=== PATIENT | female | born 1940 | race Caucasian/White ===

== ENCOUNTER 2017-02-09 10:29 | Day surgery (SDC) | payer MEDICARE ==
[~2017-02-09 10:29] MED LIST: LACTATED RINGERS 1,000 ML IV SCH; LIDOCAINE 1% 20 ML VIAL (10MG/ML) FOR IV START INTRADERMA PRN
[2017-02-09 11:50] VITALS: RESP 16; TEMP 97.4
[2017-02-09] MEDS ORDERED: PROPOFOL 10 MG/ML 20 ML VIAL IV ONE (12:22)
--- NOTE | 2017-02-09 12:44 | P.PCN ---
Date of Procedure: 02/09/17 Preoperative Diagnosis: Postoperative Diagnosis: Procedure(s) Performed: BRIEF HISTORY: Patient is a 76-year-old pleasant white female, scheduled for an elective colonoscopy as a part of evaluation of prior history of colon polyps. PROCEDURE PERFORMED: Colonoscopy with biopsy PREOPERATIVE DIAGNOSIS: History of colon polyps. IV sedation per Anesthesia. PROCEDURE: After informed consent was obtained, the patient, was brought into the endoscopy unit. IV sedation was administered by Anesthesia under continuous monitoring. Digital rectal examination was normal. Initially the Olympus CF- 160 flexible video colonoscope was then inserted in the rectum, gradually advanced into the cecum without any difficulty. Careful examination was performed as the scope was gradually being withdrawn. Ileocecal valve and the appendiceal orifice were visualized and appeared normal. Prep was excellent. There was a 5 mm polyp noted in the cecum that was removed by biopsy. Mucosa of the cecum, ascending colon, transverse colon, descending colon, sigmoid colon , and rectum appeared normal. Retroflexion was performed in the rectum and no lesions were seen. The patient tolerated the procedure well. IMPRESSION: 5 mm polyp status post removal by biopsy Mild melanosis coli. RECOMMENDATIONS: Findings of this examination were discussed with the patient as well as a family. She was advised to follow with the biopsy results. If the biopsy shows a tubular adenoma she can have a repeat colonoscopy in 5 years. Implants: Indications for Procedure: Operative Findings: Description of Procedure:
[2017-02-09 13:10] VITALS: BP 104/58; PULSE 47
== END 2017-02-09 13:57 | disposition home or self-care (01) ==
LOC: ORWHC2ENDO 10:29
PROVIDERS: ATTEND Internal Medicine Gastroenterology
DX: Z12.11 Encounter for screening for malignant neoplasm of colon (principal); D12.0 Benign neoplasm of cecum; K63.89 Other specified diseases of intestine; Z86.010 Personal history of colon polyps; I49.9 Cardiac arrhythmia, unspecified; I10 Essential (primary) hypertension; E78.5 Hyperlipidemia, unspecified; I48.91 Unspecified atrial fibrillation; M06.9 Rheumatoid arthritis, unspecified; E07.9 Disorder of thyroid, unspecified; Z79.899 Other long term (current) drug therapy
CPT/HCPCS: 88305; 45380; J2704

== ENCOUNTER → 2018-05-24 | Outpatient (CLI) | payer MEDICARE ==
--- NOTE | 2018-05-27 10:58 | MM ---
Reason for exam: screening (asymptomatic). Last mammogram was performed 1 year and 6 months ago. History: Patient is postmenopausal. Family history of breast cancer in maternal cousin. Took hormonal contraceptives for 10 years. Took estrogen for 25 years. Took progesterone for 25 years. Physical Findings: A clinical breast exam by your physician is recommended on an annual basis and results should be correlated with mammographic findings. MG 3D Screening Mammo W/Cad Bilateral CC and MLO view(s) were taken. Prior study comparison: December 05, 2016, mammogram, performed at [facility]. March 30, 2015, bilateral MG screening mammo w CAD. March 27, 2014, bilateral MG screening mammo w CAD. The breast tissue is heterogeneously dense. This may lower the sensitivity of mammography. No suspicious abnormality. No significant changes when compared with prior studies. ASSESSMENT: Negative, BI-RAD 1 RECOMMENDATION: Routine screening mammogram of both breasts in 1 year.
== END | disposition home or self-care (01) ==
LOC: RADMAMWWP 10:44
PROVIDERS: ATTEND Internal Medicine Geriatric Medicine
DX: Z12.31 Encounter for screening mammogram for malignant neoplasm of breast (principal)
CPT/HCPCS: 77063; 77067

== ENCOUNTER → 2019-02-03 | Outpatient (CLI) | payer MEDICARE ==
--- NOTE | 2019-02-03 17:17 | BD ---
EXAMINATION TYPE: Axial Bone Density DATE OF EXAM: 02/03/2019 COMPARISON: 2013 CLINICAL HISTORY: 78-year-old female osteoporosis Height: 5'7 Weight: 155 FRAX RISK QUESTIONS: Secondary Osteoporosis: 3. Menopause before 45: y RISK FACTORS HISTORY OF: Surgery to Spine: L sp When: age 30's Postmenopausal woman: y Lost more than 2 inches in height since high school: y MEDICATIONS: Thyroid Medications: Which medication: Levothyroxine How Lon years Additional Medications: pain, high blood pressure , heart Additional History: EXAM MEASUREMENTS: Bone mineral densitometry was performed using the [employer]. Bone mineral density about the R hip (g/cm2): 0.760 Bone mineral density about the L hip (g/cm2):0.769 T Score values are as follows: -----R Neck: -2.0 -----L Neck: -1.9 -----R Total: -2.2 -----L Total: -2.1 Bone mineral density has: Decreased -5.1% since study of: Bone mineral density about the L Wrist (g/cm2): 0.518 T Score values are as follows: -----Dist. R+U: -2.7 -----Prox. R+U: -2.6 -----Radius total: -2.6 IMPRESSION: Osteoporosis (T Score less than -2.5). There is increased fracture risk and therapy is usually indicated based on age. Re-Screen 1-2 years. NOTE: T-SCORE=SD OF THE YOUNG ADULT MEAN.
== END | disposition home or self-care (01) ==
LOC: RADBDWWP 13:24
PROVIDERS: ATTEND Internal Medicine Geriatric Medicine
DX: M81.0 Age-related osteoporosis without current pathological fracture (principal)
CPT/HCPCS: 77080

== ENCOUNTER 2019-06-28 19:42 | Inpatient (IN) | payer MEDICARE ==
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
[2019-06-28 20:29] LABS: Basophils % (A) 1 %; Eosinophils # (A) 0.1 k/uL (0-0.7); Eosinophils % (A) 2 %; HCT 46.5 % (34.0-46.0); HGB 15.2 gm/dL (11.4-16.0); Lymphocytes # (A) 1.8 k/uL (1.0-4.8); Lymphocytes % (A) 33 %; MCH 31.4 pg (25.0-35.0); MCHC 32.7 g/dL (31.0-37.0); MCV 96.3 fL (80.0-100.0); Mean Platelet Volume 7.5; Monocytes # (A) 0.3 k/uL (0-1.0); Monocytes % (A) 6 %; Neutrophils # (A) 3.2 k/uL (1.3-7.7); Neutrophils % (A) 57 %; Platelet Count 165 k/uL (150-450); RBC 4.83 m/uL (3.80-5.40); RDW 13.3 % (11.5-15.5); WBC 5.6 k/uL (3.8-10.6)
[2019-06-28 20:37] LABS: Partial Thromboplastin Time 25.1 sec (22.0-30.0); Prothrombin Time 10.4 sec (9.0-12.0)
--- NOTE | 2019-06-28 20:37 | XR ---
EXAMINATION TYPE: XR chest 1V portable DATE OF EXAM: 06/28/2019 COMPARISON: NONE HISTORY: Short of breath TECHNIQUE: Single frontal view of the chest is obtained. FINDINGS: Heart is enlarged. There is no heart failure. There is a oval-shaped 2.8 x 2 cm mass over the right midlung. There are chest leads. Costophrenic angles are clear. Bony thorax appears intact. IMPRESSION: Right-sided pulmonary mass is relatively dense. Recommend comparison with old exams. Car diomegaly. No heart failure.
[2019-06-28 20:38] LABS: Albumin 4.1 g/dL (3.5-5.0); Calcium 9.8 mg/dL (8.4-10.2); Magnesium 2.1 mg/dL (1.6-2.3); Potassium 4.1 mmol/L (3.5-5.1); Total Bilirubin 0.5 mg/dL (0.2-1.3); Total Protein 6.5 g/dL (6.3-8.2)
[2019-06-28] MEDS ORDERED: CEFEPIME 2 GM in SODIUM CHLORIDE 0.9% 100 ML IVPB STA (20:50)
[2019-06-28] MEDS ORDERED: SODIUM BICARB 8.4% 50 ML SYR (1 MEQ/ML) IV STA (20:52)
[2019-06-28] MEDS ORDERED: NALOXONE 0.4 MG/ML 1 ML VIAL IV PRN ×2 (20:57→20:59)
[2019-06-28] MEDS ORDERED: MORPHINE SULFATE 4 MG/ML SYRINGE IV PRN (20:57)
[2019-06-28] MEDS ORDERED: ONDANSETRON 4 MG/2 ML VIAL IVP PRN (20:57)
[2019-06-28] MEDS ORDERED: ATORVASTATIN 10 MG TAB PO SCH (21:00)
[2019-06-28] MEDS ORDERED: LOSARTAN 50 MG TAB PO PRN (21:00)
[2019-06-28] MEDS ORDERED: SODIUM CHLORIDE 0.9% 1,000 ML IV SCH (21:00)
[2019-06-28] MEDS: SODIUM CHLORIDE 0.9% 1,000 ML IV SCH (21:08)
[2019-06-29] MEDS ORDERED: [UNRECOGNIZED DRUG - OTHER] PO SCH (09:00)
[2019-06-29] MEDS ORDERED: NON FORMULARY DRUG (Cranberry 4200mg 4,200 MG) PO SCH (09:00)
[2019-06-29] MEDS: MULTIVITAMINS, THERA 1 EACH TAB PO SCH (09:07)
[2019-06-29] MEDS: ATORVASTATIN 20 MG TAB PO SCH ×2 (09:07→09:15)
[2019-06-29] MEDS: CHOLECALCIFEROL 1,000 UNIT TAB PO SCH (09:07)
[2019-06-29] MEDS: APIXABAN 5 MG TAB PO SCH ×2 (09:07→20:01)
[2019-06-29] MEDS: LEVOTHYROXINE 75 MCG TAB PO SCH (09:24)
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
[2019-06-29] MEDS: LOSARTAN 50 MG TAB PO SCH (12:02)
[2019-06-29] MEDS: ATENOLOL 25 MG TAB PO SCH (12:02)
--- NOTE | 2019-06-29 12:42 | CONS ---
CONSULTATION CHIEF COMPLAINT: Cardiac arrhythmia. Paty is a 78-year-old lady with history of paroxysmal atrial fibrillation, dyslipidemia, hypothyroidism, and hypertension who is admitted to the hospital following an abnormal event monitor. The patient has had 2 episodes of sustained palpitations and dizziness and was undergoing an event monitor through her lead programmer analyst from [facility]. Yesterday, she had another episode of dizziness, saw her lead programmer analyst who apparently told that her event monitor was abnormal and sent her to the emergency room from where she was admitted. I do not have rhythm strips from the from this event monitor. She apparently had an episode of ventricular tachycardia. There is no history of syncope and no history of chest pain, difficulty in breathing or focal neurological deficits. EKG shows sinus rhythm with nonspecific ST-T wave changes. One troponin is negative. Creatinine is 1.2. Hemoglobin is 15.2, potassium is 4.1, and the patient's Rythmol is currently on hold. The patient has not had a recent stress test and echocardiogram. PAST MEDICAL HISTORY: Significant for paroxysmal atrial fibrillation, hypertension, dyslipidemia, hypothyroidism. MEDICATIONS: Include Eliquis 5 b.i.d., Tenormin 25 daily, Lipitor 20 daily, Synthroid, Cozaar, Narcan. ALLERGIES: THE PATIENT IS ALLERGIC TO ADHESIVE AND LATEX. FAMILY HISTORY: Negative for premature coronary artery disease. SOCIAL HISTORY: Negative for current smoking, ETOH abuse or drug abuse. REVIEW OF SYSTEMS: HEENT is unremarkable. CARDIAC: As described above. RESPIRATORY: Negative. GI negative. Genitourinary: Neg. Allergy/Immunology: Negative. Skin negative. Musculoskeletal negative. Endocrine: Negative. Constitutional: Negative. Oncologic negative. Rest of the systems reviewed, not relevant. EXAM: The patient is comfortable at rest. VITAL SIGNS: Stable. There is no jugular venous distention. Carotid upstroke is normal. There is no bruit. Chest exam revealed good air entry bilaterally. Heart exam reveals first and second heart sounds. No gallop. No murmur. ABDOMEN: Soft. Exam of extremities did not reveal any edema palpable. Peripheral pulses are felt. ASSESSMENT: 1. Palpitations. 2. Possible ventricular tachycardia. 3. Paroxysmal atrial fibrillation. PLAN: I am going to obtain troponins to rule out myocardial infarction. Check a magnesium. I asked the nurse to get a hold of her outpatient records including event monitor results. I will obtain a 2D echo on her to evaluate LV function. Further course of action based on these test results. MMJANNY / EDWARDN: [id number] /
[2019-06-29 12:52] LABS: Magnesium 2.2 mg/dL (1.6-2.3)
[2019-06-29] MEDS: SODIUM CHLORIDE 0.9% 1,000 ML IV SCH (20:01)
[2019-06-30] MEDS: ATENOLOL 25 MG TAB PO SCH ×2 (07:41→08:59)
[2019-06-30] MEDS: APIXABAN 5 MG TAB PO SCH (07:41)
[2019-06-30] MEDS: LEVOTHYROXINE 75 MCG TAB PO SCH (07:42)
[2019-06-30] MEDS: CHOLECALCIFEROL 1,000 UNIT TAB PO SCH (07:42)
[2019-06-30] MEDS: ATORVASTATIN 20 MG TAB PO SCH (07:42)
[2019-06-30] MEDS: LOSARTAN 50 MG TAB PO SCH (07:42)
[2019-06-30] MEDS: MULTIVITAMINS, THERA 1 EACH TAB PO SCH (07:42)
[2019-06-30 08:07] VITALS: RESP 18
[2019-06-30] MEDS ORDERED: CAFFEINE CITRATE 60 MG/3 ML VIAL IV PRN (10:37)
[2019-06-30] MEDS ORDERED: AMINOPHYLLINE 500 MG/20 ML VIAL IV PRN (10:37)
[2019-06-30] MEDS ORDERED: SODIUM CHLORIDE 0.9% IV ONE (11:00)
[2019-06-30] MEDS ORDERED: DIPYRIDAMOLE IV ONE (11:00)
[2019-06-30 11:34] VITALS: BP 107/62; PULSE 50; TEMP 98.1
--- NOTE | 2019-06-30 11:36 | ECHOF ---
Referral Reason:dysrythmia MEASUREMENTS -------- HEIGHT: 170.2 cm WEIGHT: 69.9 kg BP: 116/66 IVSd: 1.2 cm (0.6 - 1.1) LVIDd: 3.9 cm (3.9 - 5.3) LVPWd: 1.2 cm (0.6 - 1.1) IVSs: 1.7 cm LVIDs: 2.8 cm LVPWs: 1.8 cm RVIDd: 3.7 cm (< 3.3) LAESV Index (A-L): 27.08 ml/m Ao Diam: 3.0 cm (2.0 - 3.7) LA Diam: 4.0 cm (2.7 - 3.8) AV Cusp: 2.0 cm (1.5 - 2.6) EPSS: 0.6 cm MV E Tyree: 0.63 m/s MV DecT: 193 ms MV A Tyree: 0.41 m/s MV E/A Ratio: 1.56 RAP: 5.00 mmHg RVSP: 33.99 mmHg MV EF SLOPE: 96.41 mm/s (70 - 150) MV EXCURSION: 14.88 mm (> 18.000) FINDINGS -------- Resting bradycardia (HR<60bpm). This was a technically adequate study. The left ventricular size is normal. There is mild concentric left ventricular hypertrophy. Overa ll left ventricular systolic function is low-normal with, an EF between 50 - 55 %. The diastolic fi lling pattern is normal for the age of the patient 11.65. The right ventricle is mildly enlarged. Normal LA size by volume 22+/-6 ml/m2. The right atrium is mildly enlarged. Interatrial and interventricular septum intact. The aortic valve is trileaflet and appears structurally normal. There is no evidence of aortic regu rgitation. There is no evidence of aortic stenosis. Mild mitral regurgitation is present. Mild tricuspid regurgitation present. There is no evidence of pulmonary hypertension. The right v entricular systolic pressure, as measured by Doppler, is 33.99mmHg. There is no pulmonic regurgitation present. The aortic root size is normal. The inferior vena cava is mildly dilated. There is no pericardial effusion. CONCLUSIONS -------- 1. Resting bradycardia (HR<60bpm). 2. This was a technically adequate study. 3. The left ventricular size is normal. 4. There is mild concentric left ventricular hypertrophy. 5. Overall left ventricular systolic function is low-normal with, an EF between 50 - 55 %. 6. The diastolic filling pattern is normal for the age of the patient 11.65 7. The right ventricle is mildly enlarged. 8. Normal LA size by volume 22+/-6 ml/m2. 9. The right atrium is mildly enlarged. 10. Interatrial and interventricular septum intact. 11. The aortic valve is trileaflet and appears structurally normal. 12. There is no evidence of aortic regurgitation. 13. There is no evidence of aortic stenosis. 14. Mild mitral regurgitation is present. 15. Mild tricuspid regurgitation present. 16. There is no evidence of pulmonary hypertension. 17. The right ventricular systolic pressure, as measured by Doppler, is 33.99mmHg. 18. There is no pulmonic regurgitation present. 19. The aortic root size is normal. 20. The inferior vena cava is mildly dilated. 21. There is no pericardial effusion. COMMERCIAL INTERN: Varsha Reveles RDCS
[2019-06-30] MEDS ORDERED: DOBUTamine DRIP for NUC MED 500 MG in DEXTROSE/WATER 1 250ML.BAG IV ONE (11:45)
--- NOTE | 2019-06-30 11:52 | P.PN ---
Subjective This is a pleasant 78-year-old female past medical history significant for paroxysmal atrial fibrillation on fci anticoagulation with Eliquis, hypertension, dyslidiemia who follows with Dr. Machado out of [place]. We are following her for arrhythmia noted on an outpatient monitor. Monitor tracings were received this morning and reviewed by Dr. Ruvalcaba. The strips indicate she was having wide complex atrial tachycardia with aberrancy, not ventricular tachycardia. Rhythmol has been discontinued, last dose was Thursday 06/28 at 18 30. Currently maintained on atenolol 25 mg daily, losartan 50 mg daily, eliquis 5 mg BID and atorvastatin 20 mg daily. Blood pressure 107/62 heart rate 50 afebrile and maintaining oxygen saturation on room air. Echocardiogram reveals preserved LV systolic function with ejection fraction 50-55%, abnormal diastolic filling pattern, mild MR and mild TR. She underwent stress echocardiogram in the office with her repair miller 01/2018 that was negative for stress induced ischemia. She has had no further symptoms of dizziness. She denies chest pain, shortness of breath or palpitations. GENERAL: Well-appearing, well-nourished and in no acute distress. NECK: Supple without JVD or thyromegaly. LUNGS: Breath sounds clear to auscultation bilaterally. Respiration equal and unlabored. No wheezes, rales or rhonchi. HEART: Regular rate and rhythm without murmurs, rubs or gallops. S1 and S2 heard. EXTREMITIES: Normal range of motion, no edema. No clubbing or cyanosis. Peripheral pulses intact. ASSESSMENT Wide complex regular atrial tachycardia with aberrancy Paroxysmal atrial fibrillation on long term care pharmacist anti-coagulation Hypertension Dyslipidemia PLAN Recommend proceeding with stress testing to assess for stress induced ischemia. If stress testing is normal she will need an EP study. If abnormal she will require cardiac catheterization to assess for underlying coronary artery disease. An appointment has been made with her repair miller for tomorrow if the stress test is normal. Continue to hold rhythmol on discharge. Atenolol held this morning for bradycardia, will require an increased dose at discharge if she tolerates. Nurse Practitioner note has been reviewed, I agree with a documented findings and plan of care. Patient was seen and examined. Objective - Vital Signs Vital signs: Vital Signs Temp 98.1 F 06/30/19 11:32 Pulse 50 L 06/30/19 11:32 Resp 18 06/30/19 11:32 BP 107/62 06/30/19 11:32 Pulse Ox 97 06/30/19 11:32 Intake & Output 06/29/19 06/30/19 06/30/19 18:59 06:59 18:59 Intake Total 480 Balance 480 Intake: Oral 480 Other: Voiding Method Toilet Toilet Toilet # Voids 1 2 - Labs CBC & Chem 7: 06/28/19 19:58 06/28/19 19:58
[2019-06-30] MEDS ORDERED: ATROPINE SULFATE 0.1 MG/ML 10ML SYRINGE ONE (12:30)
--- NOTE | 2019-06-30 13:59 | P.DS ---
Providers Date of admission: 06/28/19 21:03 Expected date of discharge: 06/30/19 Attending physician: Ysabel Fernandez Consults: 06/28/19 21:20 Consult Physician Routine Consulting Provider: Tom Bingham Consult Reason/Comments: propafenone toxic? Do you want consulting provider notified?: Yes Primary care physician: [facility] Course: This is a 78- Year old female one of with a previous medical history significant for hypertension and hypertensive cardiovascular disease, hyperlipidemia and atrial fibrillation has been following with Cardiology outside [place] and has been wearing a DCG were she received a call from her Crdiologist to go the ER due to the fact she had arrhythmia due to her Propafenone and she needs to stop it, patient was ready to go to [facility] when she developed an episode were she felt extremely weak and lightheaded lasted for 2 minutes and resolved on its own, then she went to [facility] and came back , her Casino Cashier called her and asked to go to the Hospital. Patient was given 2 amps of Sodium Bicarb in the Emergency and she was taken off her Propafenone and was admitted for cardiac evaluation. 06/30: Patient has been seen by cardiology and event monitor results to be obtained, troponin magnesium and echocardiogram. TSH 2.260, magnesium 2.2. Heart rate is running in the 40s to 50s, blood pressure 110/67, pulse ox 97% on room air, afebrile. Echocardiogram reveals EF of 50-55% with mild concentric left ventricular hypertrophy, mild mitral regurgitation, mild tricuspid regurgitation, no pulmonary hypertension. Cardiology requested dobutamine stress echo which was abnormal with ST depression at least 2 mm without any chest discomfort. No arrhythmias. No echo cardiographic evidence of ischemia. Patient was cleared for discharge by cardiology and patient was discharged home in stable condition. Note that did review the strip scented. The patient had a regular tachycardia likely aberrancy associated with dizziness. Discharge diagnoses: 1. Episodes of sinus tachycardia with aberrancy. 2. Hypertension and hypertensive cardiovascular disease. 3. Hyperlipidemia. 4. Hypothyroidism. 5. Paroxysmal Atrial Fibrillation. 6.Vitamin D deficiency. Discharge plan: Home Impression and plan of care have been directed as dictated by the signing physician. Tiffanie Anne nurse practitioner acting as scribe for signing physician. Patient Condition at Discharge: Good Plan - Discharge Summary New Discharge Prescriptions: Continue Cholecalciferol [Vitamin D3 (25 Mcg = 1000 Iu)] 4,000 unit PO DAILY Multivitamins, Thera [Multivitamin (formulary)] 1 tab PO DAILY Levothyroxine Sodium [Synthroid] 75 mcg PO DAILY Losartan [Cozaar] 50 mg PO DAILY Atorvastatin [Lipitor] 20 mg PO DAILY Theracumin 600mg 600 mg PO DAILY Cranberry 4200mg 4,200 mg PO DAILY Apixaban [Eliquis] 5 mg PO BID Changed Atenolol 12.5 mg PO DAILY PRN #0 PRN Reason: HIGH HEART RATE Discontinued Propafenone HCl [Propafenone HCl ER] 225 mg PO TID Simvastatin [Zocor] 20 mg PO DAILY Discharge Medication List Cholecalciferol [Vitamin D3 (25 Mcg = 1000 Iu)] 4,000 unit PO DAILY 02/07/17 [History] Levothyroxine Sodium [Synthroid] 75 mcg PO DAILY 02/07/17 [History] Multivitamins, Thera [Multivitamin (formulary)] 1 tab PO DAILY 02/07/17 [History] Apixaban [Eliquis] 5 mg PO BID 06/28/19 [History] Atorvastatin [Lipitor] 20 mg PO DAILY 06/28/19 [History] Cranberry 4200mg 4,200 mg PO DAILY 06/28/19 [History] Losartan [Cozaar] 50 mg PO DAILY 06/28/19 [History] Theracumin 600mg 600 mg PO DAILY 06/28/19 [History] Atenolol 12.5 mg PO DAILY PRN #0 06/30/19 [Rx] Follow up Appointment(s)/Referral(s): Yuri Jeong MD [Primary Care Provider] - 1 Week Patient Instructions/Handouts: Chest Pain (DC) Activity/Diet/Wound Care/Special Instructions: Follow-up with primary wheel buffer as scheduled for tomorrow 07/01/19 at 3:15pm Discharge Disposition: HOME SELF-CARE
--- NOTE | 2019-06-30 14:54 | P.STRESS ---
- Stress Test Note Stress Test Results/Findings: Exam Performed: dobutamine stress echo Exam Date: 06/30/19 Reason for Exam: A-FIB / VERTIGO / SOB Height: 5 ft 7 in Weight: 69.853 kg Protocol: DSE Stage: 5 Duration of Exercise: 13:00 Resting Heart Rate: 43 Resting Blood Pressure: 104/77 Maximum Achieved Heart Rate: 131 Maximum Achieved Blood Pressure: 175/81 85% PMHR: 121 100% PMHR: 142 METS: NA Technologist Comment: Stress Test Results/Findings: Indication History of atrial fibrillation on Afternoon now presenting with a wide complex tachycardia with a very short on S duration consistent with aberrancy I reviewed all his strips and it appears to be regular tachycardia likely aberrancy Associated with dizziness no syncope Twelve-lead ECG after stopping propafenone showed sinus rhythm normal [place] narrow QRS normal ST segments Patient received dobutamine infusion per protocol up to 40 mics. There was no tachycardia induced. Occasional PVCs and ventricular couplets were induced occasional PACs were induced Abnormal ECG response with ST depression inferolaterally was noted . [address] depression was noted this is followed by T-wave inversions How the baseline 2-D echo images showed normal LV systolic function without segmental wall motion abnormalities With dobutamine there was a stepwise increment in overall LV contractility No clear-cut wall motion abnormalities were noted At recovery reasonably systolic function with normal Impression Abnormal ECG response to dobutamine with ST depression of at least 2 mm without any chest discomfort No arrhythmias induced No echocardiographic evidence for ischemia
== END 2019-06-30 17:02 | disposition home or self-care (01) | DRG 310 ==
LOC: EC 19:42 → 1SOBS 21:02 → OBSVTOIN 21:03
PROVIDERS: ADMIT Internal Medicine; ATTEND Internal Medicine
DX: I47.1 Supraventricular tachycardia (principal); T46.2X5A Adverse effect of other antidysrhythmic drugs, initial encounter; E03.9 Hypothyroidism, unspecified; E55.9 Vitamin D deficiency, unspecified; E78.5 Hyperlipidemia, unspecified; I11.9 Hypertensive heart disease without heart failure; I48.0 Paroxysmal atrial fibrillation; M06.9 Rheumatoid arthritis, unspecified; Z79.01 Long term (current) use of anticoagulants; Z79.02 Long term (current) use of antithrombotics/antiplatelets; Z79.890 Hormone replacement therapy; Z79.899 Other long term (current) drug therapy; Z86.010 Personal history of colon polyps; Z87.891 Personal history of nicotine dependence; I08.1 Rheumatic disorders of both mitral and tricuspid valves; Z91.040 Latex allergy status; G89.29 Other chronic pain; M54.2 Cervicalgia; M54.9 Dorsalgia, unspecified; Z79.82 Long term (current) use of aspirin; J98.4 Other disorders of lung
CPT/HCPCS: 36415; 71045; 80053; 83735; 84443; 84484; 85025; 85610; 85730; 93005; 93306; 93351; 94760; 96374; 99285

== ENCOUNTER 2020-06-12 16:50 | Emergency (ER) | payer MEDICARE ==
[2020-06-12 17:22] VITALS: RESP 20
[2020-06-12 17:32] LABS: Basophils % (A) 1 %; Eosinophils # (A) 0.1 k/uL (0-0.7); Eosinophils % (A) 1 %; HCT 50.2 % (34.0-46.0); HGB 16.2 gm/dL (11.4-16.0); Lymphocytes # (A) 1.1 k/uL (1.0-4.8); Lymphocytes % (A) 16 %; MCH 32.2 pg (25.0-35.0); MCHC 32.2 g/dL (31.0-37.0); MCV 99.9 fL (80.0-100.0); Monocytes # (A) 0.4 k/uL (0-1.0); Monocytes % (A) 6 %; Neutrophils # (A) 5.2 k/uL (1.3-7.7); Neutrophils % (A) 77 %; Platelet Count 184 k/uL (150-450); RBC 5.02 m/uL (3.80-5.40); RDW 13.5 % (11.5-15.5); WBC 6.8 k/uL (3.8-10.6)
[2020-06-12 17:42] LABS: Albumin 4.2 g/dL (3.5-5.0); Calcium 9.4 mg/dL (8.4-10.2); Magnesium 2.2 mg/dL (1.6-2.3); Prothrombin Time 10.6 sec (9.0-12.0); Total Bilirubin 1.8 mg/dL (0.2-1.3); Total Protein 6.9 g/dL (6.3-8.2)
--- NOTE | 2020-06-12 17:43 | XR ---
EXAMINATION TYPE: XR chest 2V DATE OF EXAM: 06/12/2020 COMPARISON: 06/28/2019 HISTORY: Difficulty breathing TECHNIQUE: FINDINGS: There is no heart failure nor confluent pneumonic infiltrate. There is 2.4 cm rounded sharp ly marginated nodule in the right lower lobe unchanged. There are no hilar masses. There are chest le ads. Bony thorax is intact. IMPRESSION: Right lower lobe mass unchanged. No acute lung disease. Mild cardiomegaly.
[2020-06-12 17:46] LABS: Potassium 4.9 mmol/L (3.5-5.1)
--- NOTE | 2020-06-12 17:54 | ED ---
General Adult HPI - General Stated complaint: sob Time Seen by Provider: 06/12/20 16:59 Source: patient, RN notes reviewed, old records reviewed Mode of arrival: ambulatory Limitations: no limitations - History of Present Illness Initial comments: 79 yo female with an episode of dyspnea just prior to arrival. Patient has history of atrial fibrillation. She had been instructed by her manager domestic to take a dose of atenolol if her heart was racing. She did not feel palpitations or racing heart rate had some dyspnea and felt this was associated with her heart so she tooka dose of her medication. She denied chest pain. She states that she was a little bit worked up after playing an online [employer] game. She denies vomiting. Denies diaphoresis. Denies fever. She feels totally better after arrival with no complaints. She wants to go home - Related Data Home Medications Medication Instructions Recorded Confirmed Cholecalciferol [Vitamin D3 (25 4,000 unit PO DAILY 02/07/17 06/28/19 Mcg = 1000 Iu)] Levothyroxine Sodium [Synthroid] 75 mcg PO DAILY 02/07/17 06/28/19 Multivitamins, Thera [Multivitamin 1 tab PO DAILY 02/07/17 06/28/19 (formulary)] Apixaban [Eliquis] 5 mg PO BID 06/28/19 06/28/19 Atorvastatin [Lipitor] 20 mg PO DAILY 06/28/19 06/28/19 Cranberry 4200mg 4,200 mg PO DAILY 06/28/19 06/28/19 Losartan [Cozaar] 50 mg PO DAILY 06/28/19 06/28/19 Theracumin 600mg 600 mg PO DAILY 06/28/19 06/28/19 Previous Rx's Medication Instructions Recorded atenoloL [Atenolol] 12.5 mg PO DAILY PRN #0 06/30/19 Allergies Allergy/AdvReac Type Severity Reaction Status Date / Time adhesive Allergy Rash/Hives Verified 06/12/20 17:22 latex Allergy Rash/Hives Verified 06/12/20 17:22 Review of Systems ROS Statement: Those systems with pertinent positive or pertinent negative responses have been documented in the HPI. ROS Other: All systems not noted in ROS Statement are negative. Past Medical History Past Medical History: Atrial Fibrillation, Hyperlipidemia, Hypertension, Osteoarthritis (OA), Thyroid Disorder Additional Past Medical History / Comment(s): CHRONIC NECK AND BACK PAIN. COLON POLYPS. LEAKY HEART VALVE. 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 ddd History of Any Multi-Drug Resistant Organisms: None Reported Past Surgical History: Back Surgery Past Anesthesia/Blood Transfusion Reactions: Previous Problems w/ Anesthesia Additional Past Anesthesia/Blood Transfusion Reaction / Comment(s): WOKE UP DURING SURGERY (COULDN'T MOVE, SPEAK, BUT REMEMBER THEM SAWING ON BONE). Past Psychological History: No Psychological Hx Reported Smoking Status: Never smoker Past Alcohol Use History: None Reported Past Drug Use History: None Reported - Past Family History Mother History Unknown: Yes General Exam Limitations: no limitations General appearance: alert, in no apparent distress Head exam: Present: atraumatic, normocephalic Eye exam: Present: normal appearance, PERRL ENT exam: Present: normal exam Neck exam: Present: normal inspection. Absent: tenderness, meningismus Respiratory exam: Present: normal lung sounds bilaterally. Absent: respiratory distress, wheezes Cardiovascular Exam: Present: regular rate, normal rhythm GI/Abdominal exam: Present: soft. Absent: distended, tenderness Extremities exam: Present: normal inspection, normal capillary refill. Absent: pedal edema, calf tenderness Neurological exam: Present: alert, oriented X3, CN II-XII intact. Absent: motor sensory deficit Psychiatric exam: Present: normal affect, normal mood Skin exam: Present: warm, dry, intact. Absent: cyanosis, diaphoretic Course Vital Signs 06/12/20 06/12/20 16:55 17:10 Temperature 97.8 F Pulse Rate 58 L Respiratory 20 20 Rate Blood Pressure 157/105 O2 Sat by Pulse 99 Oximetry EKG Findings - EKG Comments: EKG Findings:: EKG: Sinus bradycardia, rate of 57, GA interval 174, QRS duration 82, QTC 492, no ST segment elevation. Medical Decision Making - Medical Decision Making 79-year-old female with an episode of dyspnea, resolved. She is anticoagulated with history of atrial fibrillation. She is in sinus rhythm. Her symptoms are completely resolved she is very eager for a short ER visit and rapid discharge. Her laboratory testing revealsnormal CBC, normal x-rays, negative troponin. She has mildly elevated bilirubin and AST with no vomiting, no abdominal pain, no tenderness. She will monitor for these symptoms. Her chest x-ray shows a round mass right lower lobe, unchanged from prior. Patient states she had valley fever approximately 10 years ago and this is known to her. She will follow with her primary care physician. She will return with any changingsymptoms or the development of new symptoms. - Lab Data Result diagrams: 06/12/20 17:14 06/12/20 17:14 Lab Results 06/12/20 06/12/20 06/12/20 Range/Units 17:14 17:14 17:14 WBC 6.8 (3.8-10.6) k/uL RBC 5.02 (3.80-5.40) m/uL Hgb 16.2 H (11.4-16.0) gm/dL Hct 50.2 H (34.0-46.0) % MCV 99.9 (80.0-100.0) fL MCH 32.2 (25.0-35.0) pg MCHC 32.2 (31.0-37.0) g/dL RDW 13.5 (11.5-15.5) % Plt Count 184 (150-450) k/uL Neutrophils % 77 % Lymphocytes % 16 % Monocytes % 6 % Eosinophils % 1 % Basophils % 1 % Neutrophils # 5.2 (1.3-7.7) k/uL Lymphocytes # 1.1 (1.0-4.8) k/uL Monocytes # 0.4 (0-1.0) k/uL Eosinophils # 0.1 (0-0.7) k/uL Basophils # 0.0 (0-0.2) k/uL PT 10.6 (9.0-12.0) sec INR 1.0 (<1.2) APTT 24.0 (22.0-30.0) sec Sodium 138 (137-145) mmol/L Potassium 4.9 (3.5-5.1) mmol/L Chloride 107 (98-107) mmol/L Carbon Dioxide 26 (22-30) mmol/L Anion Gap 5 mmol/L BUN 16 (7-17) mg/dL Creatinine 0.96 (0.52-1.04) mg/dL Est GFR (CKD-EPI)AfAm 65 (>60 ml/min/1.73 sqM) Est GFR (CKD-EPI)NonAf 57 (>60 ml/min/1.73 sqM) Glucose 108 H (74-99) mg/dL Calcium 9.4 (8.4-10.2) mg/dL Magnesium 2.2 (1.6-2.3) mg/dL Total Bilirubin 1.8 H (0.2-1.3) mg/dL AST 57 H (14-36) U/L ALT 21 (4-34) U/L Alkaline Phosphatase 69 (38-126) U/L Troponin I (0.000-0.034) ng/mL Total Protein 6.9 (6.3-8.2) g/dL Albumin 4.2 (3.5-5.0) g/dL 06/12/20 Range/Units 17:14 WBC (3.8-10.6) k/uL RBC (3.80-5.40) m/uL Hgb (11.4-16.0) gm/dL Hct (34.0-46.0) % MCV (80.0-100.0) fL MCH (25.0-35.0) pg MCHC (31.0-37.0) g/dL RDW (11.5-15.5) % Plt Count (150-450) k/uL Neutrophils % % Lymphocytes % % Monocytes % % Eosinophils % % Basophils % % Neutrophils # (1.3-7.7) k/uL Lymphocytes # (1.0-4.8) k/uL Monocytes # (0-1.0) k/uL Eosinophils # (0-0.7) k/uL Basophils # (0-0.2) k/uL PT (9.0-12.0) sec INR (<1.2) APTT (22.0-30.0) sec Sodium (137-145) mmol/L Potassium (3.5-5.1) mmol/L Chloride (98-107) mmol/L Carbon Dioxide (22-30) mmol/L Anion Gap mmol/L BUN (7-17) mg/dL Creatinine (0.52-1.04) mg/dL Est GFR (CKD-EPI)AfAm (>60 ml/min/1.73 sqM) Est GFR (CKD-EPI)NonAf (>60 ml/min/1.73 sqM) Glucose (74-99) mg/dL Calcium (8.4-10.2) mg/dL Magnesium (1.6-2.3) mg/dL Total Bilirubin (0.2-1.3) mg/dL AST (14-36) U/L ALT (4-34) U/L Alkaline Phosphatase (38-126) U/L Troponin I <0.012 (0.000-0.034) ng/mL Total Protein (6.3-8.2) g/dL Albumin (3.5-5.0) g/dL Disposition Clinical Impression: Dyspnea Disposition: HOME SELF-CARE Condition: Good Instructions (If sedation given, give patient instructions): Dyspnea (ED) Is patient prescribed a controlled substance at d/c from ED?: No Referrals: Yuri Jeong MD [Primary Care Provider] - 1-2 days Time of Disposition: 18:28
[2020-06-12 18:46] VITALS: BP 155/98; PULSE 60; TEMP 98
== END 2020-06-12 18:43 | disposition home or self-care (01) ==
LOC: EC 16:50
DX: R06.00 Dyspnea, unspecified (principal); R79.89 Other specified abnormal findings of blood chemistry; R74.01 Elevation of levels of liver transaminase levels; R91.8 Other nonspecific abnormal finding of lung field; I10 Essential (primary) hypertension; E78.5 Hyperlipidemia, unspecified; M19.90 Unspecified osteoarthritis, unspecified site; E07.9 Disorder of thyroid, unspecified; Z79.890 Hormone replacement therapy; Z79.01 Long term (current) use of anticoagulants; Z79.899 Other long term (current) drug therapy; Z91.048 Other nonmedicinal substance allergy status; Z91.040 Latex allergy status
CPT/HCPCS: 36415; 71046; 80053; 83735; 84484; 85025; 85610; 85730; 93005; 99285

== ENCOUNTER 2021-02-27 10:52 | Observation (INO) | payer MEDICARE ==
[2021-02-27] MEDS ORDERED: SODIUM CHLORIDE 0.9% 500 ML 500 ML IV STA (11:04)
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
--- NOTE | 2021-02-27 11:59 | XR ---
EXAMINATION TYPE: XR chest 2V DATE OF EXAM: 02/27/2021 COMPARISON: Chest x-ray 06/12/2020, chest CT 01/01/2013 HISTORY: Dysrhythmia TECHNIQUE: Frontal and lateral views of the chest are obtained. FINDINGS: There is no focal air space opacity, pleural effusion, or pneumothorax seen. Nodular densi ty in the right lower lobe is stable. The cardiac silhouette size is stable, heart is enlarged. Aort a is dense and tortuous. The osseous structures are intact. IMPRESSION: No acute cardiopulmonary process. Stable cardiomegaly, lung nodule.
[2021-02-27 12:03] LABS: Basophils % (A) 1 %; Eosinophils % (A) 1 %; HCT 47.9 % (34.0-46.0); HGB 16.3 gm/dL (11.4-16.0); Lymphocytes # (A) 1.2 k/uL (1.0-4.8); Lymphocytes % (A) 17 %; MCH 32.5 pg (25.0-35.0); MCV 95.7 fL (80.0-100.0); Mean Platelet Volume 8.4; Monocytes # (A) 0.3 k/uL (0-1.0); Monocytes % (A) 5 %; Neutrophils # (A) 5.1 k/uL (1.3-7.7); Neutrophils % (A) 76 %; Platelet Count 146 k/uL (150-450); RDW 13.2 % (11.5-15.5); WBC 6.8 k/uL (3.8-10.6)
[2021-02-27 12:15] LABS: Albumin 4.4 g/dL (3.5-5.0); Calcium 9.7 mg/dL (8.4-10.2); Total Bilirubin 1.8 mg/dL (0.2-1.3); Total Protein 6.9 g/dL (6.3-8.2)
[2021-02-27 12:18] LABS: Magnesium 2.2 mg/dL (1.6-2.3); Potassium 5.3 mmol/L (3.5-5.1)
[2021-02-27 12:28] LABS: Prothrombin Time 10.9 sec (9.0-12.0)
[2021-02-27] MEDS ORDERED: NITROGLYCERIN SL TABS 0.4 MG TAB SUBLINGUAL PRN (12:46)
[2021-02-27 19:31] VITALS: RESP 16
[2021-02-27] MEDS: APIXABAN 5 MG TAB PO SCH (20:08)
[2021-02-27] MEDS: ATORVASTATIN 20 MG TAB PO SCH (20:09)
[2021-02-27] MEDS ORDERED: diphenhydrAMINE 25 MG CAP PO SCH (21:00)
[2021-02-27] MEDS: ACETAMINOPHEN TAB 500 MG TAB PO SCH (21:31)
[2021-02-27] MEDS: IPRATROPIUM BROMIDE 0.06% NASAL SPRAY (15 ML) EA NOSTRIL SCH (21:32)
[2021-02-28] MEDS: LEVOTHYROXINE 75 MCG TAB PO SCH (06:15)
[2021-02-28] MEDS: APIXABAN 5 MG TAB PO SCH ×2 (08:04→20:15)
[2021-02-28] MEDS: CHOLECALCIFEROL 10 MCG (400 IU) TABLET PO SCH (08:04)
[2021-02-28] MEDS: MULTIVITAMINS, THERA 1 EACH TAB PO SCH (08:04)
[2021-02-28] MEDS: LOSARTAN 50 MG TAB PO SCH (08:05)
[2021-02-28] MEDS: NON FORMULARY DRUG (Lutein [Lutein] 20 MG Capsule) PO SCH (08:06)
[2021-02-28] MEDS: IPRATROPIUM BROMIDE 0.06% NASAL SPRAY (15 ML) EA NOSTRIL SCH ×2 (08:11→20:15)
[2021-02-28] MEDS ORDERED: ASPIRIN 325 MG TAB PO SCH (09:00)
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
[2021-02-28 11:17] LABS: African American GFR (CKD) 74 (>60 ml/min/1.73 sqM); Anion Gap 4 mmol/L; Blood Urea Nitrogen 12 mg/dL (7-17); Carbon Dioxide 30 mmol/L (22-30); Chloride 108 mmol/L (98-107); Glucose 84 mg/dL (74-99); Non-African American GFR(CKD) 65 (>60 ml/min/1.73 sqM); Potassium 3.5 mmol/L (3.5-5.1); Sodium 142 mmol/L (137-145)
[2021-02-28 11:29] LABS: Chol/HDL Ratio 2.18; LDL Cholesterol,Calculated 46.4 mg/dL (0.0-131.0); VLDL Calculation 18.6 mg/dL (5.00-40.00)
[2021-02-28] MEDS: AMIODARONE 100 MG TAB PO SCH (12:55)
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
[2021-02-28] MEDS: ACETAMINOPHEN TAB 500 MG TAB PO SCH (17:39)
--- NOTE | 2021-02-28 19:00 | ECHOF ---
Referral Reason:afib, bradycardia MEASUREMENTS -------- HEIGHT: 162.6 cm WEIGHT: 69.4 kg BP: IVSd: 1.2 cm (0.6 - 1.1) LVIDd: 4.2 cm (3.9 - 5.3) LVPWd: 1.2 cm (0.6 - 1.1) EDV(Teich): 80 ml IVSs: 1.8 cm LVIDs: 2.3 cm LVPWs: 1.8 cm %IVS Thck: 46 % ESV(Teich): 18 ml EF(Teich): 77 % %FS: 46 % SV(Teich): 62 ml RVIDd: 2.7 cm (< 3.3) IVC: 16.26 mm Ao Diam: 3.1 cm (2.0 - 3.7) LA Diam: 3.3 cm (2.7 - 3.8) AV Cusp: 2.2 cm (1.5 - 2.6) EPSS: 0.7 cm MR Vmax: 2.57 m/s MR maxP.89 mmHg AV Vmax: 1.10 m/s AV maxP.88 mmHg AR Vmax: 1.36 m/s AR maxP.35 mmHg AR PHT: 449 ms AR Dec Time: 1549 ms AR Dec [place]: 0.9 m/s TR Vmax: 2.66 m/s TR maxP.20 mmHg RAP: 5.00 mmHg RVSP: 33.20 mmHg MV EF SLOPE: 62.69 mm/s (70 - 150) MV EXCURSION: 13.19 mm (> 18.000) FINDINGS -------- This was a technically good study. The left ventricular size is normal. There is mild concentric left ventricular hypertrophy. Overa ll left ventricular systolic function is normal with, an EF between 55 - 60 %. The right ventricle is normal in size. The left atrial size is normal. The right atrial size is normal. The aortic valve is trileaflet and appears structurally normal. Trace amount of aortic regurgitatio n. The mitral valve is normal. Mild mitral regurgitation is present. Cannot exclude mitral valve pro lapse. The tricuspid valve appears structurally normal. Moderate tricuspid regurgitation present. Right ventricular systolic pressure is normal at < 35 mmHg. There is no pulmonic regurgitation present. The aortic root size is normal. Normal inferior vena cava with normal inspiratory collapse consistent with estimated right atrial pre ssure of 5 mmHg. There is no pericardial effusion. CONCLUSIONS -------- 1. The left ventricular size is normal. 2. There is mild concentric left ventricular hypertrophy. 3. Overall left ventricular systolic function is normal with, an EF between 55 - 60 %. 4. Trace amount of aortic regurgitation. 5. Mild mitral regurgitation is present. 6. Cannot exclude mitral valve prolapse. 7. Moderate tricuspid regurgitation present. 8. There is no pericardial effusion. SORT MANAGER: Nicole Head RDCS
[2021-02-28] MEDS: ATORVASTATIN 20 MG TAB PO SCH (20:15)
[2021-03-01] MEDS: LEVOTHYROXINE 75 MCG TAB PO SCH (06:13)
[2021-03-01 07:29] VITALS: BP 155/84; PULSE 48; TEMP 97.7
--- NOTE | 2021-03-01 09:01 | P.DS ---
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 Alvarado [phone] at [facility] comes in with episodes of tachycardia that started this morning patient went to the kitchen to take her pill with no improvement. She called her friend who called EMS since there was no improvement in her symptoms after she took atenolol patient decided to come to the ER. Patient takes her atenolol as needed for intermittent episodes of tachycardia. In the ER patient was noted to have sinus bradycardia with heart rate ranging from 35-40. She denies any episode of dizziness or passing out. Patient anxiety arrhythmic medication amiodarone and atenolol was discontinued. Vitals were reviewed patient has a temp of 98 pulse 44 blood pressure 117/69 oxygen saturation 96% on room air. Labs were reviewed patient has a WBC of 6.8 hemoglobin 16.3 potassium of 5.3 ma gnesium 2.2 total bilirubin 1.8 AST 55 troponin x3 - LDL 46. Cardiology consulted. Patient placed back on amiodarone to prevent A. fib with RVR. Atenolol remains to be held. 03/01: Echocardiogram reveals EF of 55-60% with mild concentric left ventricular hypertrophy, trace aortic regurgitation, mild mitral regurgitation, cannot exclude mitral valve prolapse. Moderate tricuspid regurgitation. Patient has been seen and followed by cardiology and recommendations are to hold atenolol, decrease amiodarone and Dr. Hull has provided the patient with the name of a ship harbor pilot for ablation procedure at [facility]. Her heart rates remained in the 40s, blood pressure 155/84, pulse ox 99% on room air. She's been afebrile. Patient will be discharged home today in stable condition and has been instructed to follow-up with her primary ship harbor pilot. DISCHARGE DIAGNOSES: 1 Palpitation secondary to sinus bradycardia. 3. Hyperkalemia improved 4. Hypertension 5. Hypothyroidism continue Synthyroid at 75 mcg daily TSH ordered 6. Hyperlipidemia continue Lipitor at 20 mg nightly 7. Low back pain DISCHARGE PLAN Home Impression and plan of care have been directed as dictated by the signing physician. Tiffanie Anne nurse practitioner acting as scribe for signing physician. Patient Condition at Discharge: Good Plan - Discharge Summary Discharge Rx Participant: Yes New Discharge Prescriptions: New Amiodarone [Cordarone] 100 mg PO DAILY #30 tab Continue Multivitamins, Thera [Multivitamin (formulary)] 1 tab PO DAILY Levothyroxine Sodium [Synthroid] 75 mcg PO DAILY Atorvastatin [Lipitor] 20 mg PO HS Apixaban [Eliquis] 5 mg PO BID Lutein 20 mg PO DAILY Cholecalciferol [Vitamin D3 (10 Mcg = 400 Iu)] 400 unit PO DAILY Acetaminophen/Diphenhydramine [Tylenol PM 500-25mg] 2 tab PO HS Losartan [Cozaar] 50 mg PO DAILY Ipratropium [place] [Ipratropium [place] 0.03%] 2 sprays EA NOSTRIL BID Discontinued Amiodarone HCl [Pacerone] 200 mg PO DAILY atenoloL [Atenolol] 25 mg PO DAILY PRN PRN Reason: HIGH HEART RATE Discharge Medication List Levothyroxine Sodium [Synthroid] 75 mcg PO DAILY 02/07/17 [History] Multivitamins, Thera [Multivitamin (formulary)] 1 tab PO DAILY 02/07/17 [History] Apixaban [Eliquis] 5 mg PO BID 06/28/19 [History] Atorvastatin [Lipitor] 20 mg PO HS 06/28/19 [History] Acetaminophen/Diphenhydramine [Tylenol PM 500-25mg] 2 tab PO HS 06/12/20 [History] Cholecalciferol [Vitamin D3 (10 Mcg = 400 Iu)] 400 unit PO DAILY 06/12/20 [History] Ipratropium [place] [Ipratropium [place] 0.03%] 2 sprays EA NOSTRIL BID 06/12/20 [History] Losartan [Cozaar] 50 mg PO DAILY 06/12/20 [History] Lutein 20 mg PO DAILY 06/12/20 [History] Amiodarone [Cordarone] 100 mg PO DAILY #30 tab 03/01/21 [Rx] Follow up Appointment(s)/Referral(s): Yuri Jeong MD [Primary Care Provider] - 03/10/21 9:30 am (Appointment will be with Grazyna.) Patient Instructions/Handouts: Heart Palpitations (DC), Generalized Anxiety Disorder (ED), Hyperkalemia (DC) Activity/Diet/Wound Care/Special Instructions: Follow up with Cardiology and referral from Dr. Ruvalcaba for ablation Discharge Disposition: HOME SELF-CARE
[2021-03-01] MEDS: CHOLECALCIFEROL 10 MCG (400 IU) TABLET PO SCH (09:36)
[2021-03-01] MEDS: LOSARTAN 50 MG TAB PO SCH (09:36)
[2021-03-01] MEDS: MULTIVITAMINS, THERA 1 EACH TAB PO SCH (09:36)
[2021-03-01] MEDS: APIXABAN 5 MG TAB PO SCH (09:37)
[2021-03-01] MEDS: IPRATROPIUM BROMIDE 0.06% NASAL SPRAY (15 ML) EA NOSTRIL SCH (09:37)
[2021-03-01] MEDS: AMIODARONE 100 MG TAB PO SCH (09:37)
[2021-03-01] MEDS: NON FORMULARY DRUG (Lutein [Lutein] 20 MG Capsule) PO SCH (09:39)
--- NOTE | 2021-03-01 10:54 | P.PN ---
Subjective HISTORY OF PRESENTING ILLNESS This is a pleasant 80-year-old female past medical history significant for paroxysmal atrial fibrillation on long-term anticoagulation, hypertension, dyslipidemia and hypothyroidism. She follows in the office with Dr Munoz at [facility]. We have been asked to see in consultation for bradycardia. She states yesterday she felt palpitations and her heart racing fast. She has a prescription from her licensed prosthetist for atenolol to be taken as needed when she has these episodes. She did take and atenolol yesterday. Shortly thereafter her palpitations subsided however she was feeling extremely weak and fatigued prompting her to come to the hospital for evaluation. On arrival to the hospital EKG was obtained revealing sinus bradycardia. Telemetry tracings reveal persistent sinus bradycardia with heart rate between 37 and 41. She denies symptoms of dizziness. She has had no further episodes of palpitations. She has no chest pain, shortness of breath, nausea, vomiting or diaphoresis. A ccording to the patient she has quite an extensive history of antiarrhythmic medications. Currently she is maintained on amiodarone 200 mg daily. Laboratory data reviewed, WBC 6.8, hemoglobin 16.3, platelets 146, sodium 143, potassium 5.3, creatinine 0.77, magnesium 2.2, cardiac enzymes negative 3. Chronic daily cardiac medications include losartan 50 mg daily, atorvastatin 20 mg daily, Eliquis 5 mg twice a day and amiodarone 200 mg daily. An echocardiogram performed in 2017 revealed preserved LV systolic function with ejection fraction 50-55%. 03/01/2021 Pt seen and examined up ambulating around the room. Her heart rates remain low at rest and when sleeping but are improved with activity. She also remains asymptomatic. She has had no afib on the monitor. Blood pressure 155/84 heart rate 48 afebrile and maintaining oxygen saturation on room air. Laboratory data reviewed, LDL 46, HDL 55 and TSH 3.17. Echocardiogram obtained reveals preserved LV systolic function with ejection fraction 55-60% and moderate TR. PHYSICAL EXAMINATION CONSTITUTIONAL: No apparent distress. HEENT: Head is normocephalic. Pupils are equal, round. Sclerae anicteric. Mucous membranes of the mouth are moist. No JVD. No carotid bruit. CHEST EXAMINATION: Lungs are clear to auscultation. No chest wall tenderness is noted on palpation or with deep breathing. HEART EXAMINATION: Slow and regular rate and rhythm. S1, S2 heard. No murmurs, gallops or rub. EXTREMITIES: 2+ peripheral pulses, no lower extremity edema and no calf tenderness. ASSESSMENT Paroxysmal atrial fibrillation on Eliquis for anticoagulation Sinus bradycardia, asymptomatic Suspect sick sinus syndrome Hyperkalemia Hypertension Dyslipidemia Hypothyroidism PLAN Stable for discharge on current medical regimen. Discontinue atenolol. Patient to follow-up with her primary licensed prosthetist upon discharge. Nurse Practitioner note has been reviewed, I agree with a documented findings and plan of care. Patient was seen and examined. Objective - Vital Signs Vital signs: Vital Signs Temp 97.7 F 03/01/21 07:00 Pulse 48 L 03/01/21 08:00 Resp 16 03/01/21 08:00 BP 155/84 03/01/21 07:00 Pulse Ox 99 03/01/21 07:00 Intake & Output 02/28/21 03/01/21 03/01/21 18:59 06:59 18:59 Intake Total 500 Balance 500 Intake: Oral 500 Other: # Voids 1 2 - Labs CBC & Chem 7: 02/27/21 11:22 02/28/21 04:42 Labs: Abnormal Lab Results - Last 24 Hours (Table) 02/28/21 Range/Units 04:42 Chloride 108 H (98-107) mmol/L
== END 2021-03-01 13:56 | disposition home or self-care (01) ==
LOC: EC 10:52 → 6NMEDSUR 13:00
PROVIDERS: ADMIT Internal Medicine Geriatric Medicine; ATTEND Internal Medicine Geriatric Medicine
DX: R00.1 Bradycardia, unspecified (principal); E87.5 Hyperkalemia; I10 Essential (primary) hypertension; E03.9 Hypothyroidism, unspecified; E78.5 Hyperlipidemia, unspecified; M54.5 Low back pain; F41.9 Anxiety disorder, unspecified; I48.0 Paroxysmal atrial fibrillation; R06.02 Shortness of breath; R00.0 Tachycardia, unspecified; M19.90 Unspecified osteoarthritis, unspecified site; G89.29 Other chronic pain; M54.2 Cervicalgia; M81.0 Age-related osteoporosis without current pathological fracture; Z87.19 Personal history of other diseases of the digestive system; Z86.19 Personal history of other infectious and parasitic diseases; Z87.891 Personal history of nicotine dependence; Z79.01 Long term (current) use of anticoagulants; Z79.899 Other long term (current) drug therapy; Z79.890 Hormone replacement therapy; Z91.040 Latex allergy status; Z91.048 Other nonmedicinal substance allergy status; Z66 Do not resuscitate
CPT/HCPCS: 93005 ×2; 96360; 99285; 36415; 93306; 80061; 80053; 80048; 84443; 83735; 84484; 85025; 85610; 85730; 71046; G0378 ×3

== ENCOUNTER 2021-03-09 10:02 | Emergency (ER) | payer MEDICARE ==
[2021-03-09 10:18] VITALS: TEMP 97.8
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
[2021-03-09 10:35] LABS: Appearance,Urine Clear (Clear); Bacteria,Urine Few /hpf; Bilirubin,Urine Negative (Negative); Blood,Urine Negative (Negative); Color,Urine Light Yellow; Glucose,Urine (UA) Negative (Negative); Ketones,Urine Negative (Negative); Leukocyte Esterase,Urine Small (Negative); Nitrite,Urine Positive (Negative); PH, Urine 7.5 (5.0-8.0); Protein,Urine Negative (Negative); RBC,Urine 1 /hpf (0-5); Specific Gravity,Urine 1.003 (1.001-1.035); Urobilinogen,Urine <2.0 mg/dL (<2.0); WBC,Urine 12 /hpf (0-5)
[2021-03-09 10:44] LABS: Basophils % (A) 0 %; Eosinophils # (A) 0.1 k/uL (0-0.7); Eosinophils % (A) 1 %; HCT 53.6 % (34.0-46.0); HGB 17.8 gm/dL (11.4-16.0); Lymphocytes % (A) 16 %; MCH 32.5 pg (25.0-35.0); MCHC 33.2 g/dL (31.0-37.0); Mean Platelet Volume 9.3; Monocytes # (A) 0.3 k/uL (0-1.0); Monocytes % (A) 5 %; Neutrophils # (A) 4.9 k/uL (1.3-7.7); Neutrophils % (A) 76 %; Platelet Count 156 k/uL (150-450); RBC 5.48 m/uL (3.80-5.40); RDW 13.4 % (11.5-15.5); WBC 6.4 k/uL (3.8-10.6)
[2021-03-09 10:54] LABS: Partial Thromboplastin Time 24.3 sec (22.0-30.0); Prothrombin Time 10.9 sec (9.0-12.0)
[2021-03-09 10:55] LABS: Albumin 4.9 g/dL (3.5-5.0); Calcium 10.4 mg/dL (8.4-10.2); Total Bilirubin 1.4 mg/dL (0.2-1.3); Total Protein 7.4 g/dL (6.3-8.2)
[2021-03-09 11:00] LABS: Magnesium 2.3 mg/dL (1.6-2.3); Potassium 4.9 mmol/L (3.5-5.1)
--- NOTE | 2021-03-09 11:20 | XR ---
EXAMINATION TYPE: XR chest 2V DATE OF EXAM: 03/09/2021 COMPARISON: 02/27/2021 HISTORY: short of breath TECHNIQUE: Frontal and lateral views of the chest are obtained. FINDINGS: Right lung nodule is unchanged. Lungs are otherwise clear. Cardiac silhouette is stable in size. IMPRESSION: No acute cardiopulmonary process. Right lung nodule
[2021-03-09] MEDS ORDERED: SODIUM CHLORIDE 0.9% 500 ML 500 ML IV ONE (11:22)
[2021-03-09] MEDS ORDERED: LORazepam 2 MG/ML INJ IV STA (11:23)
[2021-03-09] MEDS ORDERED: DILTIAZEM DRIP BOLUS FROM BAG 1 MG SOLN IV ONE (11:23)
[2021-03-09] MEDS ORDERED: NALOXONE 0.4 MG/ML 1 ML VIAL IV PRN (11:25)
[2021-03-09] MEDS ORDERED: ACETAMINOPHEN TAB 325 MG TAB PO PRN (11:25)
[2021-03-09] MEDS ORDERED: DILTIAZEM 125 MG in SODIUM CHLORIDE 0.9% 100 ML IV SCH (11:30)
[2021-03-09 11:40] VITALS: RESP 20
[2021-03-09 12:54] VITALS: BP 119/77; PULSE 69
== END 2021-03-09 13:15 | disposition home or self-care (01) ==
LOC: EC 10:02 → UNDOADMIN 11:25 → 3SCARD 11:25 → EC 13:15
DX: I49.9 Cardiac arrhythmia, unspecified (principal); F41.9 Anxiety disorder, unspecified; I48.91 Unspecified atrial fibrillation; I10 Essential (primary) hypertension; E78.5 Hyperlipidemia, unspecified; M19.90 Unspecified osteoarthritis, unspecified site; M81.0 Age-related osteoporosis without current pathological fracture; Z79.01 Long term (current) use of anticoagulants
CPT/HCPCS: 36415; 93005; 80053; 83735; 84484; 85025; 85610; 85730; 81001; 87086; 71046; 99285; 96374; J2060

== ENCOUNTER → 2021-07-06 | Outpatient (CLI) | payer MEDICARE ==
--- NOTE | 2021-07-06 17:59 | BD ---
EXAMINATION TYPE: Axial Bone Density DATE OF EXAM: 07/06/2021 COMPARISON: 02/03/2019 CLINICAL HISTORY: Postmenopausal screening Height: 66 IN Weight: 139 LBS RISK FACTORS HISTORY OF: Surgery to Spine: L SPINE When: Active: YES Diet low in dairy products/other sources of calcium: YES Postmenopausal woman: AGE 50 MEDICATIONS: Thyroid Medications: YES Which medication: Levothyroxine How Lon+ YEARS Additional Medications: CALCIUM, VIT D, LEVOTHYROXINE, ELIQUIS, LOSARTAN, ATORVASTATIN, AMIODARONE, L UTEIN, TYLENOL PM EXAM MEASUREMENTS: Bone mineral densitometry was performed using the [employer] System. PT HAD L SPINE SURGERY IN Bone mineral density about the R hip (g/cm2): 0.690 Bone mineral density about the L hip (g/cm2): 0.720 T Score values are as follows: -----R Neck: -2.5 -----L Neck: -2.3 -----R Total: -2.7 -----L Total: -2.3 Bone mineral density has: Decreased -6.2% since study of: 02/03/2019 Bone mineral density about the L Wrist (g/cm2): 0.487 T Score values are as follows: -----Dist. R+U: -2.9 -----Prox. R+U: -2.8 -----Radius total: -3.1 Bone mineral density has: Decreased -2.0% since study of: 02/03/2019 IMPRESSION: Osteoporosis (T Score less than -2.5). There is increased fracture risk and therapy is usually indicated based on age. Re-Screen 1-2 years. NOTE: T-SCORE=SD OF THE YOUNG ADULT MEAN.
--- NOTE | 2021-07-07 12:02 | MM ---
Reason for exam: screening (asymptomatic). Last mammogram was performed 3 years and 1 month ago. History: Patient is postmenopausal. Took hormonal contraceptives for 10 years. Took estrogen for 25 years. Took progesterone for 25 years. Physical Findings: A clinical breast exam by your physician is recommended on an annual basis and results should be correlated with mammographic findings. MG 3D Screening Mammo W/Cad Bilateral CC, MLO, and XCCL view(s) were taken. Prior study comparison: May 24, 2018, bilateral MG 3d screening mammo w/cad. December 05, 2016, mammogram, performed at [facility]. The breast tissue is extremely dense which could obscure a lesion on mammography. No significant changes when compared with prior studies. ASSESSMENT: Benign, BI-RAD 2 RECOMMENDATION: Routine screening mammogram of both breasts in 1 year.
== END ==
LOC: RADMAMWWP 10:03
PROVIDERS: ATTEND Internal Medicine Geriatric Medicine
DX: Z12.31 Encounter for screening mammogram for malignant neoplasm of breast (principal); M81.0 Age-related osteoporosis without current pathological fracture
CPT/HCPCS: 77063; 77067; 77080

== ENCOUNTER 2022-02-23 08:35 | Emergency (ER) | payer MEDICARE ==
[2022-02-23 08:40] VITALS: BP 133/104; PULSE 89; TEMP 97.6
[2022-02-23 08:43] VITALS: RESP 20
[2022-02-23] MEDS ORDERED: ASPIRIN 81 MG PO STA (08:45)
[2022-02-23] MEDS ORDERED: LORazepam 0.5 MG TAB PO STA (08:54)
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
[2022-02-23] MEDS ORDERED: APIXABAN 5 MG TAB PO STA (09:08)
[2022-02-23] MEDS ORDERED: amLODIPine 5 MG TAB PO STA (09:08)
[2022-02-23] MEDS ORDERED: LOSARTAN 50 MG TAB PO STA (09:08)
[2022-02-23 09:23] LABS: Appearance,Urine Clear (Clear); Bilirubin,Urine Negative (Negative); Blood,Urine Negative (Negative); Color,Urine Light Yellow; Glucose,Urine (UA) Negative (Negative); Ketones,Urine Trace (Negative); Leukocyte Esterase,Urine Negative (Negative); Nitrite,Urine Negative (Negative); Protein,Urine Negative (Negative); Specific Gravity,Urine 1.007 (1.001-1.035); Urobilinogen,Urine <2.0 mg/dL (<2.0)
[2022-02-23 09:25] LABS: Basophils # (A) 0.1 k/uL (0-0.2); Basophils % (A) 1 %; Eosinophils # (A) 0.1 k/uL (0-0.7); Eosinophils % (A) 1 %; HCT 48.6 % (34.0-46.0); HGB 16.2 gm/dL (11.4-16.0); Lymphocytes # (A) 1.4 k/uL (1.0-4.8); Lymphocytes % (A) 22 %; MCH 32.9 pg (25.0-35.0); MCHC 33.4 g/dL (31.0-37.0); MCV 98.3 fL (80.0-100.0); Mean Platelet Volume 8.6; Monocytes # (A) 0.4 k/uL (0-1.0); Monocytes % (A) 6 %; Neutrophils # (A) 4.3 k/uL (1.3-7.7); Neutrophils % (A) 68 %; Platelet Count 187 k/uL (150-450); RBC 4.94 m/uL (3.80-5.40); RDW 13.1 % (11.5-15.5); WBC 6.4 k/uL (3.8-10.6)
--- NOTE | 2022-02-23 09:32 | XR ---
EXAMINATION TYPE: XR chest 2V DATE OF EXAM: 02/23/2022 COMPARISON: 03/09/2021 HISTORY: Shortness of breath TECHNIQUE: Frontal and lateral views of the chest are obtained. FINDINGS: Scattered senescent parenchymal changes noted. Hyperinflation compatible with COPD. No evidence for infiltrate. No evidence for atelectasis. Stable mass periphery of the right midlung z one. Heart size is stable. Mediastinal structures are stable and grossly unremarkable. No evidence for hilar prominence. Degenerative changes dorsal spine. IMPRESSION: 1. No evidence for acute pulmonary disease.
[2022-02-23 09:34] LABS: Partial Thromboplastin Time 22.3 sec (22.0-30.0); Prothrombin Time 10.8 sec (9.0-12.0)
[2022-02-23 09:37] LABS: Albumin 4.3 g/dL (3.5-5.0); Calcium 9.3 mg/dL (8.4-10.2); Magnesium 2.2 mg/dL (1.6-2.3); Potassium 4.1 mmol/L (3.5-5.1); Total Bilirubin 1.1 mg/dL (0.2-1.3); Total Protein 6.9 g/dL (6.3-8.2)
[2022-02-23] MEDS ORDERED: SODIUM CHLORIDE 0.9% 500 ML 500 ML IV STA (09:39)
[2022-02-23] MEDS ORDERED: APIXABAN 5 MG TAB PO SCH (21:00)
[2022-02-24] MEDS ORDERED: LOSARTAN 50 MG TAB PO SCH (09:00)
[2022-02-24] MEDS ORDERED: AMIODARONE 100 MG TAB PO SCH (09:00)
== END 2022-02-23 10:28 | disposition other institution (70) ==
LOC: EC 08:35
DX: I95.1 Orthostatic hypotension (principal); R00.2 Palpitations; E78.5 Hyperlipidemia, unspecified; I10 Essential (primary) hypertension; E07.9 Disorder of thyroid, unspecified; Z79.899 Other long term (current) drug therapy; Z91.048 Other nonmedicinal substance allergy status; Z91.040 Latex allergy status
CPT/HCPCS: 36415; 71046; 80053; 81003; 83735; 84484; 85025; 85610; 85730

== ENCOUNTER 2022-02-23 10:32 | Observation (INO) | payer MEDICARE ==
[2022-02-23] MEDS ORDERED: SODIUM CHLORIDE 0.9% 1,000 ML IV STA (10:52)
[2022-02-23] MEDS ORDERED: NALOXONE 0.4 MG/ML 1 ML VIAL IV PRN (10:56)
--- NOTE | 2022-02-23 11:28 | ED ---
General Adult HPI - General Chief complaint: Syncope Stated complaint: Recheck Time Seen by Provider: 02/23/22 10:34 Source: patient, RN/MD, RN notes reviewed, old records reviewed Mode of arrival: wheelchair - History of Present Illness Initial comments: Please see prior note for further details on this patient. She was about to be discharged when she got up to use the restroom. Suffered a syncopal vs near syncopal episode on the way to back from the restroom. Slowly lowered herself to the ground. Did not hit her head. Did not fall. Patient states she could hear staff as well as see staff but felt extremely weak and lightheaded. When care sugar was found to be within normal limits. Repeat EKG will be obtained as well as orthostatic vital signs. Originally presented for palpitations and anxiety. Workup was within normal limits. I did recommend that we admit her to the hospital for further monitoring. She was in agreement this plan. No acute complaints at this time. - Related Data Home Medications Medication Instructions Recorded Confirmed Levothyroxine Sodium [Synthroid] 75 mcg PO AC-BRKFST 02/07/17 02/23/22 Multivitamins, Thera [Multivitamin 1 tab PO DAILY 02/07/17 02/23/22 (formulary)] Apixaban [Eliquis] 5 mg PO BID 06/28/19 02/23/22 Atorvastatin [Lipitor] 20 mg PO HS 06/28/19 02/23/22 Acetaminophen/Diphenhydramine 1 tab PO HS 06/12/20 02/23/22 [Tylenol PM 500-25mg] Cholecalciferol [Vitamin D3 (10 10 mcg PO DAILY 06/12/20 02/23/22 Mcg = 400 Iu)] Ipratropium [place] [Ipratropium 2 sprays EA NOSTRIL BID 06/12/20 02/23/22 [place] 0.03%] Lutein 20 mg PO DAILY 06/12/20 02/23/22 Flecainide Acetate [Tambocor] 100 mg PO Q12H 02/23/22 02/23/22 Losartan Potassium 100 mg PO DAILY 02/23/22 02/23/22 amLODIPine [Norvasc] 5 mg PO DAILY 02/23/22 02/23/22 Allergies Allergy/AdvReac Type Severity Reaction Status Date / Time adhesive Allergy Rash/Hives Verified 02/23/22 10:56 latex Allergy Rash/Hives Verified 02/23/22 10:56 Review of Systems ROS Statement: Those systems with pertinent positive or pertinent negative responses have been documented in the HPI. Review of Systems: CONST: Denies fever EYES: Denies blurry vision ENT: Denies nasal congestion C/V: Denies Chest pain RESP: Denies shortness of breath GI: Denies abdominal pain : Denies dysuria SKIN: Denies rash. MSK: Denies joint pain. NEURO: Denies headache ROS Other: All systems not noted in ROS Statement are negative. 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 History of Any Multi-Drug Resistant Organisms: None Reported Past Surgical History: Back Surgery, Cardiac Ablation Additional Past Surgical History / Comment(s): 3 cardiac ablations at [facility], lumbar fusion, colonoscopies/polypectomies Past Anesthesia/Blood Transfusion Reactions: Previous Problems w/ Anesthesia Additional Past Anesthesia/Blood Transfusion Reaction / Comment(s): Pt woke dur ing lumbar surgery. Past Psychological History: No Psychological Hx Reported Additional Psychological History / Comment(s): Pt resides alone. She is independent. Smoking Status: Former smoker Past Alcohol Use History: None Reported Additional Past Alcohol Use History / Comment(s): Pt started smoking as a teen and quit in 1960. Past Drug Use History: None Reported - Past Family History Mother History Unknown: Yes Family Medical History: Cancer Additional Family Medical History / Comment(s): Mother of brain cancer at the age of 42 yrs. Father Family Medical History: Myocardial Infarction (MD) Additional Family Medical History / Comment(s): Father of a MD in his early 80s. General Exam - General Exam Comments Initial Comments: General: Appears in no acute distress. HEAD: Normal with no signs of head trauma. EYES: PERRLA, EOMI, conjunctiva normal, no discharge. Pupils are 3 mm and equal bilaterally. ENT: Hearing grossly intact, normal oropharynx. RESPIRATORY: Clear breath sounds bilaterally. No wheezes, rales, or rhonchi. C/V: Regular rate and rhythm. S1 and S2 auscultated, no edema, peripheral pulses 2+ and intact throughout ABD: Abd is soft, nontender, nondistended EXT: Normal range of motion, no obvious deformity SKIN: No rashes or lesions observed on exposed skin. NEURO: Alert and oriented x 4. Cranial nerves II-XII intact. No focal sensory or strength deficits. NIH is 0. GCS of 15. Course Vital Signs 02/23/22 02/23/22 10:46 10:53 Temperature 97.8 F 97.9 F Pulse Rate 97 Pulse Rate [ 91 Right Radial] Respiratory 16 16 Rate Blood Pressure 139/77 Blood Pressure 108/70 [Right Arm Sitting] Blood Pressure 110/55 [Right Arm Standing] Blood Pressure 124/94 [Right Arm Supine] O2 Sat by Pulse 97 Oximetry Medical Decision Making - Medical Decision Making Based on the patient's presentation and physical exam, does appear she expressed a syncopal versus near syncopal episode on the way to the room from the bathroom. Workup was already obtained and was unremarkable. Please see the previous note for further details. Due to the syncopal episode, we did repeat an EKG which showed that the patient is now in sinus rhythm. POC blood sugar was obtained and was within normal limits. Orthostatic blood pressures were obtained and were positive with significant drops in systolic blood pressure. Remainder the vital signs are unremarkable. I do not believe that CT imaging is warranted at this time and she did not suffer any form of injury pre- syncopal versus syncopal episode. Did recommend admission. She was in agreement this plan. The reason for a second note is that the patient was discharged by nursing staff and therefore was reregistered. I spoke with the admitting physician, Dr. Jeong who accepted the patient. She was admitted in stable condition. - EKG Data -: EKG Interpreted by Me EKG Comments: 12-lead Electrocardiogram Interpretation Note EKG was reviewed and interpreted by myself. 12-lead ECG performed at 1035 is interpreted by me as revealing normal sinus rhythm at a rate of 93 beats per minute. Right axis deviation. MI interval is 244 ms, QRS duration is 125 ms, QTc is 428 ms.. There were no acute ST or T wave abnormalities to suggest myocardial ischemia or injury. R wave progression across the precordium was satisfactory. By my interpretation this EKG is non-diagnostic for acute ischemia. Chronic changes seen on prior EKGs. Disposition Clinical Impression: Orthostatic hypotension, History of atrial fibrillation, Near syncope Disposition: ADMITTED IP TO THIS HOSP Condition: Stable Time of Disposition: 10:40
[2022-02-23] MEDS: SODIUM CHLORIDE 0.9% 1,000 ML IV SCH ×3 (12:55→22:21)
[2022-02-23] MEDS: FLECAINIDE 50 MG TAB PO SCH (19:42)
[2022-02-23] MEDS: APIXABAN 5 MG TAB PO SCH (20:23)
[2022-02-23] MEDS: IPRATROPIUM BROMIDE EA NOSTRIL SCH (20:24)
[2022-02-23] MEDS ORDERED: ATORVASTATIN 20 MG TAB PO SCH (21:00)
[2022-02-23] MEDS ORDERED: ACETAMINOPHEN TAB 500 MG TAB PO SCH (21:00)
[2022-02-23] MEDS ORDERED: diphenhydrAMINE 25 MG CAP PO SCH (21:00)
[2022-02-24] MEDS ORDERED: LEVOTHYROXINE 75 MCG TAB PO SCH (06:30)
--- NOTE | 2022-02-24 08:09 | P.HPIM ---
History of Present Illness H&P Date: 02/23/22 HISTORY OF PRESENT ILLNESS 81-year-old female one of my office patient with past medical history of A. fib, atherosclerotic heart disease, hypothyroidism and hypertension who was hospitalized last at [facility] for A. fib with RVR had seen electrophysiology ended up having ablation therapy at [facility] few month ago. Patient went for follow-up and has been doing very well not going in and out of A. fib anymore but continued to be on flecainide 100 mg every 12 hours and remain on anticoagulation. She went to the grocery store this morning felt slight palpitation developed to have significant dyspnea and shortness of breath and more tiredness ended up coming back home and felt she was having more tiredness and worsening palpitation. Trying to fix her cough. The time when become more lightheaded and dizzy with a recurrent symptom felt s he is going in and out of A. fib ended up coming to the emergency department at [facility]. Her pulse rate was reasonably control at the time after her workup become negative and the emergency physician ready to send her home she went into A. fib with RVR again developed to have significant dyspnea and shortness of breath with pulse rate running above 120 beats per minutes. Patient was admitted to the hospital continue Cardizem drip if needed continue flecainide. Patient on smaller dose of beta jp and patient be seen cardiology. REVIEW OF SYSTEMS Constitutional: No fever, no chills, no night sweats. No weight change. No weakness, fatigue or lethargy. No daytime sleepiness. EENT: No headache. No blurred vision or double vision, no loss of vision. No loss of Hearing, no ringing in the ears, no dizziness. No nasal drainage or congestion. No epistaxis. No sore throat. Lungs: No shortness of breath, cough, no sputum production. No wheezing. Cardiovascular: No chest pain, no lower extremity edema. Positive palpitation with A. fib and dyspnea with mild orthopnea. Abdominal: No abdominal pain. No nausea, vomiting. No diarrhea. No con stipation. No bloody or tarry stools.. No loss of appetite. Genitourinary: No dysuria, increased frequency, urgency. No urinary retention. Musculoskeletal: No myalgias. No muscle weakness, no gait dysfunction, no frequent falls. No back pain. No neck pain. Integumentary: No wounds, no lesions. No rash or pruritus. No unusual bruising. No change in hair or nails. Neurologic: No aphasia. No facial droop. No change in mentation. No head injury. No headache. No paralysis. No paresthesia. Psychiatric: No depression. No anxiety. No mood swings. Endocrine: No abnormal blood sugars. No weight change. No excessive sweating or thirst. No cold intolerance. SOCIAL HISTORY She does not smoke, no code abuse, does not use any oxygen at home CPAP. FAMILY HISTORY Her mother age 42 from brain cancer most likely breast with metastasis, father his AP from ID. Patient had sublingual history of CAD. PHYSICAL EXAMINATION CONSTITUTIONAL: Patient appears comfortable in no apparent distress. NECK: No JVD or lymph node enlargement. HEET: Unremarkable, conjunctivae/corneas clear. Sclera anicteric. Oral cavity no lesions. RESPIRATORY: Clear to auscultation bilaterally. CARDIOVASCULAR: Regular rate S1-S2 positive S3 positive PVCs with multiple episode of arrhythmia. GASTROINTESTINAL: soft, non tender, no organomegaly. Bowel sounds are positive. PSYCH: Denies any depression or anxiety. SKIN: No rashes NEUROLOGICAL: alert, oriented x 3, no focal deficits noted. ASSESSMENT AND PLAN - A. fib with RVR: Despite EP follow-up and ablation patient continued to have symptoms at this point, patient will be continue on flecainide, start metoprolol continue anticoagulation and consult cardiology. - Hypertension: Has been well controlled on losartan 100 mg a day along with atropine 5 mg a day. - Hyperlipidemia: Remain on atorvastatin 20 mg a day. - Hypothyroidism: Continue Synthroid 75 g daily. - Anticoagulation: Patient doing very well on Eliquis 5 mg twice a day. - Atherosclerotic heart disease: No chest pain or angina at this point patient is seeing cardiology testing are up-to-date. - GI prophylaxis: Patient be on Pepcid 20 mg daily. - DVT prophylaxis: Patient is on anticoagulation. CODE STATUS: Full code. Patient will be admitted to the hospital for a minimum of 1 night stay. 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 History of Any Multi-Drug Resistant Organisms: None Reported Past Surgical History: Back Surgery, Cardiac Ablation Additional Past Surgical History / Comment(s): 3 cardiac ablations at [facility], lumbar fusion, colonoscopies/polypectomies Past Anesthesia/Blood Transfusion Reactions: Previous Problems w/ Anesthesia Additional Past Anesthesia/Blood Transfusion Reaction / Comment(s): Pt woke during lumbar surgery. Past Psychological History: No Psychological Hx Reported Additional Psychological History / Comment(s): Pt resides alone. She is i ndependent. Smoking Status: Former smoker Past Alcohol Use History: None Reported Additional Past Alcohol Use History / Comment(s): Pt started smoking as a teen and quit in 1960. Past Drug Use History: None Reported - Past Family History Mother History Unknown: Yes Family Medical History: Cancer Additional Family Medical History / Comment(s): Mother of brain cancer at the age of 42 yrs. Father Family Medical History: Myocardial Infarction (ID) Additional Family Medical History / Comment(s): Father of a ID in his early 80s. Medications and Allergies Home Medications Medication Instructions Recorded Confirmed Type Levothyroxine Sodium [Synthroid] 75 mcg PO AC-BRKFST 02/07/17 02/23/22 History Multivitamins, Thera [Multivitamin 1 tab PO DAILY 02/07/17 02/23/22 History (formulary)] Apixaban [Eliquis] 5 mg PO BID 06/28/19 02/23/22 History Atorvastatin [Lipitor] 20 mg PO HS 06/28/19 02/23/22 History Acetaminophen/Diphenhydramine 1 tab PO HS 06/12/20 02/23/22 History [Tylenol PM 500-25mg] Cholecalciferol [Vitamin D3 (10 10 mcg PO DAILY 06/12/20 02/23/22 History Mcg = 400 Iu)] Ipratropium [place] [Ipratropium 2 sprays EA NOSTRIL BID 06/12/20 02/23/22 History [place] 0.03%] Lutein 20 mg PO DAILY 06/12/20 02/23/22 History Flecainide Acetate [Tambocor] 100 mg PO Q12H 02/23/22 02/23/22 History Losartan Potassium 100 mg PO DAILY 02/23/22 02/23/22 History amLODIPine [Norvasc] 5 mg PO DAILY 02/23/22 02/23/22 History Allergies Allergy/AdvReac Type Severity Reaction Status Date / Time adhesive Allergy Rash/Hives Verified 02/23/22 10:56 latex Allergy Rash/Hives Verified 02/23/22 10:56 Physical Exam Vitals: Vital Signs Temp Pulse Pulse Resp BP BP BP 02/23/22 13:39 97.5 F L 88 18 130/89 02/23/22 10:53 97.9 F 91 16 108/70 110/55 02/23/22 10:46 97.8 F 97 16 139/77 BP Pulse Ox 02/23/22 13:39 99 02/23/22 10:53 124/94 02/23/22 10:46 97 Intake and Output 02/23/22 02/23/22 02/23/22 06:59 14:59 22:59 Intake Total 118 Balance 118 Intake: Oral 118 Other: # Voids 1 Weight 68.039 kg Thrombosis Risk Factor Assmnt - Choose All That Apply Any of the Below Risk Factors Present?: Yes Other Risk Factors: Yes Each Risk Factor Represents 3 Points: Age 75 years or older Other congenital or acquired thrombophilia - If yes, enter type in comment: No Thrombosis Risk Factor Assessment Total Risk Factor Score: 3 Thrombosis Risk Factor Assessment Level: Moderate Risk
[2022-02-24] MEDS: APIXABAN 5 MG TAB PO SCH (08:11)
[2022-02-24] MEDS: FLECAINIDE 50 MG TAB PO SCH (08:11)
[2022-02-24] MEDS: IPRATROPIUM BROMIDE EA NOSTRIL SCH (08:12)
[2022-02-24] MEDS: SODIUM CHLORIDE 0.9% 1,000 ML IV SCH (08:14)
[2022-02-24 08:30] VITALS: BP 132/85; PULSE 65; TEMP 97.5
--- NOTE | 2022-02-24 08:43 | P.DS ---
Providers Date of admission: 02/23/22 10:56 Expected date of discharge: 02/24/22 Attending physician: Yuri Jeong Consults: 02/23/22 10:56 Consult Physician Routine Consulting Provider: [facility] Reason/Comments: palpatations, history of paroxysmal atrial fibrillation, orthostatic hypote Do you want consulting provider notified?: Yes, Notify in am Primary care physician: [facility] Course: HISTORY OF PRESENT ILLNESS 81-year-old female one of my office patient with past medical history of A. fib, atherosclerotic heart disease, hypothyroidism and hypertension who was hospitalized last at [facility] for A. fib with RVR had seen electrophysiology ended up having ablation therapy at [facility] few month ago. Patient went for follow-up and has been doing very well not going in and out of A. fib anymore but continued to be on flecainide 100 mg elvia ry 12 hours and remain on anticoagulation. She went to the grocery store this morning felt slight palpitation developed to have significant dyspnea and shortness of breath and more tiredness ended up coming back home and felt she was having more tiredness and worsening palpitation. Trying to fix her cough. The time when become more lightheaded and dizzy with a recurrent symptom felt she is going in and out of A. fib ended up coming to the emergency department at [facility]. Her pulse rate was reasonably control at the time after her workup become negative and the emergency physician ready to send her home she went into A. fib with RVR again developed to have significant dyspnea and shortness of breath with pulse rate running above 120 beats per minutes. Patient was admitted to the hospital continue Cardizem drip if needed continue flecainide. Patient on smaller dose of beta jp and patient be seen cardiology. 02/24: Patient has been seen by cardiology and cleared for discharge. She has been in a sinus rhythm running in the 60s to 80s, afebrile, blood pressure 132/85 and pulse ox 100% on room air. Troponins negative 2. 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 Patient will be discharged home today in stable condition. DISCHARGE DIAGNOSES - Paroxysmal A. fib with RVR: Despite EP follow-up and ablation, currently in sinus rhythm - Hypertension - Hyperlipidemia - Hypothyroidism - Anticoagulation on Eliquis - Atherosclerotic heart disease: No chest pain or angina DISCHARGE PLAN Home Greater than 35 minutes was utilized and coordinating patient's discharge. Impression and plan of care have been directed as dictated by the signing physician. Tiffanie Anne nurse practitioner acting as scribe for signing physician. Patient Condition at Discharge: Good Plan - Discharge Summary Discharge Rx Participant: No New Discharge Prescriptions: New Metoprolol Tartrate 12.5 mg PO BID #30 tab Continue Multivitamins, Thera [Multivitamin (formulary)] 1 tab PO DAILY Levothyroxine Sodium [Synthroid] 75 mcg PO AC-BRKFST Atorvastatin [Lipitor] 20 mg PO HS Apixaban [Eliquis] 5 mg PO BID Lutein 20 mg PO DAILY Cholecalciferol [Vitamin D3 (10 Mcg = 400 Iu)] 10 mcg PO DAILY Acetaminophen/Diphenhydramine [Tylenol PM 500-25mg] 1 tab PO HS Ipratropium [place] [Ipratropium [place] 0.03%] 2 sprays EA NOSTRIL BID amLODIPine [Norvasc] 5 mg PO DAILY Flecainide Acetate [Tambocor] 100 mg PO Q12H Losartan Potassium 100 mg PO DAILY Discharge Medication List Levothyroxine Sodium [Synthroid] 75 mcg PO AC-BRKFST 02/07/17 [History] Multivitamins, Thera [Multivitamin (formulary)] 1 tab PO DAILY 02/07/17 [History] Apixaban [Eliquis] 5 mg PO BID 06/28/19 [History] Atorvastatin [Lipitor] 20 mg PO HS 06/28/19 [History] Acetaminophen/Diphenhydramine [Tylenol PM 500-25mg] 1 tab PO HS 06/12/20 [History] Cholecalciferol [Vitamin D3 (10 Mcg = 400 Iu)] 10 mcg PO DAILY 06/12/20 [History] Ipratropium [place] [Ipratropium [place] 0.03%] 2 sprays EA NOSTRIL BID 06/12/20 [History] Lutein 20 mg PO DAILY 06/12/20 [History] Flecainide Acetate [Tambocor] 100 mg PO Q12H 02/23/22 [History] Losartan Potassium 100 mg PO DAILY 02/23/22 [History] amLODIPine [Norvasc] 5 mg PO DAILY 02/23/22 [History] Metoprolol Tartrate 12.5 mg PO BID #30 tab 02/24/22 [Rx] Follow up Appointment(s)/Referral(s): Yuri Jeong MD [Primary Care Provider] - 1 Week Activity/Diet/Wound Care/Special Instructions: 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
[2022-02-24] MEDS ORDERED: LOSARTAN 50 MG TAB PO SCH (09:00)
[2022-02-24] MEDS ORDERED: amLODIPine 5 MG TAB PO SCH (09:00)
[2022-02-24 09:27] VITALS: RESP 16
[2022-02-24 10:42] LABS: Basophils # (A) 0.03 X 10*3/uL (0.00-0.10); Basophils % (A) 0.7 %; Eosinophils # (A) 0.09 X 10*3/uL (0.04-0.35); HCT 39.9 % (37.2-46.3); HGB 13.2 g/dL (12.0-15.0); Immature Grans, Automated 0.2 %; Lymphocytes # (A) 1.48 X 10*3/uL (0.90-5.00); Lymphocytes % (A) 33.4 %; MCH 31.8 pg (27.0-32.0); MCHC 33.1 g/dL (32.0-37.0); MCV 96.1 fL (80.0-97.0); Mean Platelet Volume 11.1 fL (9.5-12.2); Monocytes # (A) 0.37 X 10*3/uL (0.20-1.00); Monocytes % (A) 8.4 %; NRBC Per 100 WBC 0 /100 WBCS (0.0-0.0); Neutrophils # (A) 2.45 X 10*3/uL (1.80-7.70); Neutrophils % (A) 55.3 %; Platelet Count 160 X 10*3/uL (140-440); RBC 4.15 X 10*6/uL (4.10-5.20); RDW 13.7 % (11.5-14.5); WBC 4.43 X 10*3/uL (4.50-10.00)
--- NOTE | 2022-02-24 10:43 | P.CRDCN ---
History of Present Illness Consult date: 02/24/22 Chief complaint: Palpitation History of present illness: This is an 81-year-old female patient who sees a director security risk management out of the town with a past medical history significant for paroxysmal atrial fibrillation as well as thyroid disease. We requested to see the patient for further evaluation of heart racing/fluttering. The patient underwent atrial fibrillation ablation several months ago and she has done well since then in term of staying in sinus rhythm. Apparently her atrial fibrillation was extremely symptomatic. She was in her usual state of health until yesterday when she went outside to a grocery shopping and after that she felt weak. She went to sleep and she woke up in the morning continues to feel weak and short of breath and then she started experiencing symptoms of heart racing and fluttering. She felt that her atrial fibrillation back in for that reason she decided to come to the hospital. In the emergency department here she underwent a workup including EKG showing sinus mechanism but subsequently she went into A. fib with RVR. She converted back to normal sinus mechanism. She stated that since then she has been feeling better. Otherwise she reports no pain in the chest and no dizziness or lightheadedness and no feeling of heart racing or fluttering. She stated that she has been compliant with her medications including oral anticoagulation. When she was seen and evaluated this morning she is asymptomatic and also she is hemodynamically stable. From the cardiac standpoint of view, I would agree with starting the patient on small dose of beta jp and then continue the current medical regimen including oral anticoagulation and subsequently the patient can be discharged home and follow-up with her director security risk management as an outpatient. 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 History of Any Multi-Drug Resistant Organisms: None Reported Past Surgical History: Back Surgery, Cardiac Ablation Additional Past Surgical History / Comment(s): 3 cardiac ablations at [facility], lumbar fusion, colonoscopies/polypectomies Past Anesthesia/Blood Transfusion Reactions: Previous Problems w/ Anesthesia Additional Past Anesthesia/Blood Transfusion Reaction / Comment(s): Pt woke during lumbar surgery. Past Psychological History: No Psychological Hx Reported Additional Psychological History / Comment(s): Pt resides alone. She is independent. Smoking Status: Former smoker Past Alcohol Use History: None Reported Additional Past Alcohol Use History / Comment(s): Pt started smoking as a teen and quit in 1960. Past Drug Use History: None Reported - Past Family History Mother History Unknown: Yes Family Medical History: Cancer Additional Family Medical History / Comment(s): Mother of brain cancer at the age of 42 yrs. Father Family Medical History: Myocardial Infarction ([place]) Additional Family Medical History / Comment(s): Father of a [place] in his early 80s. Medications and Allergies Home Medications Medication Instructions Recorded Confirmed Type Levothyroxine Sodium [Synthroid] 75 mcg PO AC-BRKFST 02/07/17 02/23/22 History Multivitamins, Thera [Multivitamin 1 tab PO DAILY 02/07/17 02/23/22 History (formulary)] Apixaban [Eliquis] 5 mg PO BID 06/28/19 02/23/22 History Atorvastatin [Lipitor] 20 mg PO HS 06/28/19 02/23/22 History Acetaminophen/Diphenhydramine 1 tab PO HS 06/12/20 02/23/22 History [Tylenol PM 500-25mg] Cholecalciferol [Vitamin D3 (10 10 mcg PO DAILY 06/12/20 02/23/22 History Mcg = 400 Iu)] Ipratropium [place] [Ipratropium 2 sprays EA NOSTRIL BID 06/12/20 02/23/22 History [place] 0.03%] Lutein 20 mg PO DAILY 06/12/20 02/23/22 History Flecainide Acetate [Tambocor] 100 mg PO Q12H 02/23/22 02/23/22 History Losartan Potassium 100 mg PO DAILY 02/23/22 02/23/22 History amLODIPine [Norvasc] 5 mg PO DAILY 02/23/22 02/23/22 History Metoprolol Tartrate 12.5 mg PO BID #30 tab 02/24/22 Rx Allergies Allergy/AdvReac Type Severity Reaction Status Date / Time adhesive Allergy Rash/Hives Verified 02/23/22 10:56 latex Allergy Rash/Hives Verified 07/07/22 10:56 Physical Exam Vitals: Vital Signs Temp Pulse Pulse Resp BP BP BP 02/24/22 08:00 16 02/24/22 07:00 97.5 F L 65 14 02/24/22 02:50 97.6 F 61 16 02/23/22 20:00 98.0 F 86 18 02/23/22 13:39 97.5 F L 88 18 130/89 02/23/22 10:53 97.9 F 91 16 108/70 110/55 02/23/22 10:46 97.8 F 97 16 139/77 BP BP Pulse Ox 02/24/22 08:00 02/24/22 07:00 132/85 100 02/24/22 02:50 124/86 98 02/23/22 20:00 129/88 94 L 02/23/22 13:39 99 02/23/22 10:53 124/94 02/23/22 10:46 97 Intake and Output 02/23/22 02/24/22 02/24/22 22:59 06:59 14:59 Intake Total 118 118 Balance 118 118 Intake: Oral 118 118 Other: # Voids 1 1 - Constitutional General appearance: no acute distress - Respiratory Respiratory: bilateral: CTA - Cardiovascular Rhythm: regular Heart sounds: normal: S1, S2 Results Cardiac Enzymes 02/23/22 02/23/22 Range/Units 11:48 14:55 Troponin I <0.012 <0.012 (0.000-0.034) ng/mL Current Medications Generic Name Dose Route Start Last Admin Trade Name Ericq PRN Reason Stop Dose Admin Acetaminophen 500 mg 02/23/22 21:00 02/23/22 19:34 Acetaminophen Tab 500 Mg Tab PO Not Given HS SALAZAR Amlodipine Besylate 5 mg 02/24/22 09:00 02/24/22 08:11 Amlodipine 5 Mg Tab PO 5 mg DAILY SALAZAR Administration Apixaban 5 mg 02/23/22 21:00 02/24/22 08:11 Apixaban 5 Mg Tab PO 5 mg BID SALAZAR Administration Protocol Atorvastatin Calcium 20 mg 02/23/22 21:00 02/23/22 20:22 Atorvastatin 20 Mg Tab PO 20 mg HS SALAZAR Administration Diphenhydramine HCl 25 mg 02/23/22 21:00 02/23/22 20:23 Diphenhydramine 25 Mg Cap PO 25 mg HS SALAZAR Administration Flecainide Acetate 100 mg 02/23/22 19:00 02/24/22 08:11 Flecainide 50 Mg Tab PO 100 mg Q12H SALAZAR Administration Sodium Chloride 1,000 mls @ 100 mls/hr 02/23/22 11:00 02/24/22 08:14 Saline 0.9% IV 100 mls/hr .Q10H SALAZAR Administration Levothyroxine Sodium 75 mcg 02/24/22 06:30 02/24/22 05:31 Levothyroxine 75 Mcg Tab PO 75 mcg 0630 SALAZAR Administration Losartan Potassium 100 mg 02/24/22 09:00 02/24/22 08:10 Losartan 50 Mg Tab PO 100 mg DAILY SALAZAR Administration Naloxone HCl 0.2 mg 02/23/22 10:56 Naloxone 0.4 Mg/Ml 1 Ml Vial IV Q2M PRN Opioid Reversal Patient's Own ( 2 sprays 02/23/22 21:00 02/24/22 08:12 Ipratropium [place] EA NOSTRIL Not Given [Ipratropium [place] BID SALAZAR 0.03%] 30 Ml Luna) Intake and Output 02/23/22 02/24/22 02/24/22 22:59 06:59 14:59 Intake Total 118 118 Balance 118 118 Intake: Oral 118 118 Other: # Voids 1 1 Assessment and Plan Assessment: Assessment #1 paroxysmal atrial fibrillation #2 heart racing/fluttering related to A. fib with RVR #3 thyroid disease Plan #1 continue the current medical regimen including oral anticoagulation #2 agree about starting the patient on small dose of beta jp #3 continue flecainide. As an outpatient she needed to be ruled out for any structural heart disease giving that she is on flecainide #4 the patient is stable to be discharged home and follow-up with her director security risk management
[2022-02-24 11:09] LABS: African American GFR (CKD) 80.1 (60.0-200.0); Anion Gap 7.2 mmol/L (10.00-18.00); BUN/Creat Ratio 14.25 Ratio (12.00-20.00); Blood Urea Nitrogen 11.4 mg/dL (9.0-27.0); Calcium 8.5 mg/dL (8.7-10.3); Carbon Dioxide 24.8 mmol/L (20.0-27.5); Non-African American GFR(CKD) 69.1 (60.0-200.0); Potassium 3.8 mmol/L (3.5-5.5)
== END 2022-02-24 10:49 | disposition home or self-care (01) ==
LOC: EC 10:32 → 6NMEDSUR 10:56
PROVIDERS: ADMIT Internal Medicine Geriatric Medicine; ATTEND Internal Medicine Geriatric Medicine
DX: I48.0 Paroxysmal atrial fibrillation (principal); I95.1 Orthostatic hypotension; E03.9 Hypothyroidism, unspecified; I25.10 Atherosclerotic heart disease of native coronary artery without angina pectoris; I10 Essential (primary) hypertension; E78.5 Hyperlipidemia, unspecified; M19.90 Unspecified osteoarthritis, unspecified site; M81.0 Age-related osteoporosis without current pathological fracture; G89.29 Other chronic pain; M54.50 Low back pain, unspecified; M54.2 Cervicalgia; Z79.01 Long term (current) use of anticoagulants; Z79.890 Hormone replacement therapy; Z79.899 Other long term (current) drug therapy; Z91.040 Latex allergy status; Z91.048 Other nonmedicinal substance allergy status; Z98.1 Arthrodesis status; Z86.010 Personal history of colon polyps; Z87.891 Personal history of nicotine dependence; Z86.79 Personal history of other diseases of the circulatory system; Z86.19 Personal history of other infectious and parasitic diseases; Z80.8 Family history of malignant neoplasm of other organs or systems; Z82.49 Family history of ischemic heart disease and other diseases of the circulatory system
CPT/HCPCS: 96360; 96361 ×2; 99285; 93005; 80048; 84484; 85025; G0378 ×2

== ENCOUNTER → 2022-06-12 | Outpatient (CLI) | payer MEDICARE ==
--- NOTE | 2022-06-12 12:49 | CT ---
EXAMINATION TYPE: CT lumbar spine wo con DATE OF EXAM: 06/12/2022 12:19 PM COMPARISON: None HISTORY: Lower back pain Automated exposure control for dose reduction was used. Unenhanced CT of the lumbar spine was performed. Bone and soft tissue window settings are submitted as well as coronal and sagittal reconstructions. There is curvature noted convex to the right L1-L2: There is vacuum disc noted with endplate sclerosis. No significant disc herniation or protrusi on. No central stenosis. Mild facet joint arthropathy without foraminal encroachment. L2-L3: Vacuum disc noted with endplate sclerosis. Epidural foci of air are noted. No evidence for joselyn tral stenosis or obvious disc herniation. Mild ventral stenosis. Severe facet joint arthropathy with mild bilateral foraminal encroachment. L3-L4: Vacuum disc noted. Circumferential disc bulge greatest posteriorly. Hypertrophy of the ligamen ole flavum and facet joint arthropathy resulting in moderate central stenosis. Facet joint arthropath y with left foraminal encroachment. L4-L5: Postoperative changes of fusion. Streak artifact limits evaluation. No obvious recurrent or re sidual disease. No definite central stenosis. Foramina are patent bilaterally. L5-S1: Postoperative changes of fusion. Vacuum changes noted. Streak artifact limits evaluation. No d efinite evidence for recurrent or residual disease. No central stenosis. Facet joint arthropathy. IMPRESSION: 1 multilevel degenerative disc disease as discussed. 2. 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 3. Varying degrees of neural foraminal encroachment as outlined Above.
== END | disposition home or self-care (01) ==
LOC: RADCTMAIN 11:38
PROVIDERS: ATTEND Physical Medicine & Rehabilitation
DX: M51.36 Other intervertebral disc degeneration, lumbar region (principal); M48.061 Spinal stenosis, lumbar region without neurogenic claudication
CPT/HCPCS: 72131

== ENCOUNTER → 2023-09-20 | Outpatient (CLI) | payer MEDICARE ==
--- NOTE | 2023-09-21 12:56 | CT ---
EXAMINATION TYPE: CT cervical spine wo con DATE OF EXAM: 09/20/2023 COMPARISON: None HISTORY: Cervicalgia, numbness CT DLP: 384.10 mGycm CONTRAST: None CT of the cervical spine is performed in the axial plane at 2 mm thick sections. Reconstructed image s in the coronal, and sagittal plane are reviewed on the computer. No acute fractures are evident. Vertebral body alignment is normal. There is loss of disc height at C5-6. Mild diffuse narrowing of disc height is to the remaining cervi josé luis spine. Some vacuum disc phenomenon is present C5-6. Posterior spinal lamellar line is intact. Pre vertebral space is normal. Vertebral body heights are preserved. No spinal canal stenosis is evident. Some endplate spurring at C5-6 does have thecal sac impression, slightly greater in the right paracentral region towards the right foramen. No obvious cord contact. Borderline spinal canal narrowing may be present in 0.8 cm. Uncovertebral joint hypertrophy is contributing to foraminal narrowing at C3-4, C4-5, C5-6 bilaterall y. This appears greater at C4-5 C5-6 on the right with more severe narrowing. Paranasal sinuses and mastoid air cells within the field of view are clear. Lung apices within the fi eld of view are clear. IMPRESSION: 1. Uncovertebral joint hypertrophy contributing to foraminal narrowing upper cervical spine greates t at C4-5 C5-6 on the right. Correlate with the radicular symptoms. 2. Endplate spurring with mild anterior thecal sac compression C5-6 may contribute to some mild spina l canal narrowing. 3. Follow-up MRI can be performed as clinically indicated.
== END | disposition home or self-care (01) ==
LOC: RADCTMAIN 12:12
PROVIDERS: ATTEND Physical Medicine & Rehabilitation
DX: M47.812 Spondylosis without myelopathy or radiculopathy, cervical region (principal); M48.02 Spinal stenosis, cervical region; M43.12 Spondylolisthesis, cervical region; M48.062 Spinal stenosis, lumbar region with neurogenic claudication; M41.26 Other idiopathic scoliosis, lumbar region; M47.816 Spondylosis without myelopathy or radiculopathy, lumbar region; M51.34 Other intervertebral disc degeneration, thoracic region
CPT/HCPCS: 72125

== ENCOUNTER 2025-01-04 19:31 | Emergency (ER) | payer MEDICARE ==
[2025-01-04 19:42] VITALS: RESP 18
--- NOTE | 2025-01-04 20:14 | ED ---
ENT HPI - General Chief complaint: ENT Stated complaint: Nosebleed Time Seen by Provider: 01/04/25 19:50 Source: patient, EMS, RN notes reviewed Mode of arrival: EMS Limitations: no limitations - History of Present Illness Initial comments: This is an 84-year-old female with history including hypertension, hyperlipidemia and A-fib presenting via EMS for epistaxis x 2 hours. Patient states she was brushing her teeth when she began having sudden onset nosebleed from her right nostril, prompting call to 911 when she was unable to control ble eding herself. Patient states bleeding stopped spontaneously as paramedics were loading her into the ambulance. Patient states she had a similar nosebleed from the same nostril 2 days prior on Sunday. Patient endorses use of Eliquis. Denies recent fall or trauma precipitating bleed. Denies dizziness, altered level of consciousness, nausea/vomiting. MD complaint: epistaxis Onset/Timin -: hour(s) - Related Data Home Medications Medication Instructions Recorded Confirmed Levothyroxine Sodium [Synthroid] 75 mcg PO AC-BRKFST 02/07/17 02/23/22 Multivitamins, Thera [Multivitamin 1 tab PO DAILY 02/07/17 02/23/22 (formulary)] Apixaban [Eliquis] 5 mg PO BID 06/28/19 02/23/22 Atorvastatin [Lipitor] 20 mg PO HS 06/28/19 02/23/22 Acetaminophen/Diphenhydramine 1 tab PO HS 06/12/20 02/23/22 [Tylenol PM 500-25mg] Cholecalciferol [Vitamin D3 (10 10 mcg PO DAILY 06/12/20 02/23/22 Mcg = 400 Iu)] Ipratropium [place] [Ipratropium 2 sprays EA NOSTRIL BID 06/12/20 02/23/22 [place] 0.03%] Lutein 20 mg PO DAILY 06/12/20 02/23/22 Flecainide Acetate [Tambocor] 100 mg PO Q12H 02/23/22 02/23/22 Losartan Potassium 100 mg PO DAILY 02/23/22 02/23/22 amLODIPine [Norvasc] 5 mg PO DAILY 02/23/22 02/23/22 Previous Rx's Medication Instructions Recorded Metoprolol Tartrate 12.5 mg PO BID #30 tab 02/24/22 Allergies Allergy/AdvReac Type Severity Reaction Status Date / Time adhesive Allergy Rash/Hives Verified 02/23/22 10:56 latex Allergy Rash/Hives Verified 02/23/22 10:56 Review of Systems ROS Statement: Those systems with pertinent positive or pertinent negative responses have been documented in the HPI. ROS Other: All systems not noted in ROS Statement are negative. 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 History of Any Multi-Drug Resistant Organisms: None Reported Past Surgical History: Back Surgery, Cardiac Ablation Additional Past Surgical History / Comment(s): 3 cardiac ablations at [facility], lumbar fusion, colonoscopies/polypectomies Past Anesthesia/Blood Transfusion Reactions: Previous Problems w/ Anesthesia Additional Past Anesthesia/Blood Transfusion Reaction / Comment(s): Pt woke during lumbar surgery. Past Psychological History: No Psychological Hx Reported Smoking Status: Former smoker Past Alcohol Use History: None Reported Past Drug Use History: None Reported - Past Family History Mother History Unknown: Yes Family Medical History: Cancer Additional Family Medical History / Comment(s): Mother of brain cancer at the age of 42 yrs. Father Family Medical History: Myocardial Infarction ([place]) Additional Family Medical History / Comment(s): Father of a [place] in his early 80s. General Exam Limitations: no limitations General appearance: alert, in no apparent distress Head exam: Present: atraumatic, normocephalic, normal inspection Eye exam: Present: normal appearance, PERRL, EOMI. Absent: scleral icterus, conjunctival injection, periorbital swelling ENT exam: Present: mucous membranes moist, other (Dried blood noted in right nare with no active bleeding when patient leans head forward). Absent: normal oropharynx (Blood noted in back of oropharynx with no active blood flow) Neck exam: Present: normal inspection. Absent: tenderness, meningismus, lymphadenopathy Respiratory exam: Present: normal lung sounds bilaterally. Absent: respiratory distress, wheezes, rales, rhonchi, stridor Cardiovascular Exam: Present: regular rate, normal rhythm, normal heart sounds. Absent: systolic murmur, diastolic murmur, rubs, gallop, clicks GI/Abdominal exam: Present: soft, normal bowel sounds. Absent: distended, tenderness, guarding, rebound, rigid Extremities exam: Present: normal inspection, full ROM, normal capillary refill. Absent: tenderness, pedal edema, joint swelling, calf tenderness Back exam: Present: normal inspection Neurological exam: Present: alert, oriented X3, CN II-XII intact Psychiatric exam: Present: normal affect, normal mood Skin exam: Present: warm, dry, intact, normal color. Absent: rash Course Vital Signs 01/04/25 01/04/25 19:35 21:01 Temperature 98.0 F 98.1 F Pulse Rate 88 87 Respiratory 18 18 Rate Blood Pressure 103/78 114/78 O2 Sat by Pulse 97 98 Oximetry Medical Decision Making - Medical Decision Making Was pt. sent in by a medical professional or institution (, PA, [employer], urgent care, hospital, or senior care...) When possible be specific @ -No Did you speak to anyone other than the patient for history (EMS, parent, family, police, friend...)? What history was obtained from this source @ -No Did you review nursing and triage notes (agree or disagree)? Why? @ -I reviewed and agree with nursing and triage notes Were old charts reviewed (outside hosp., previous admission, EMS record, old EKG, old radiological studies, urgent care reports/EKG's, senior care records)? Report findings @ -No old charts were reviewed Differential Diagnosis (chest pain, altered mental status, abdominal pain women, abdominal pain men, vaginal bleeding, weakness, fever, dyspnea, syncope, headache, dizziness, GI bleed, back pain, seizure, CVA, palpatations, mental health, musculoskeletal)? @ -Epistaxis, sinusitis, nasal polyps, [place] fracture, seasonal allergies, this is not an exhaustive list EKG interpreted by me (3pts min.). @ -Not done X-rays interpreted by me (1pt min.). @ -None done CT interpreted by me (1pt min.). @ -None done U/S interpreted by me (1pt. min.). @ -None done What testing was considered but not performed or refused? (CT, X-rays, U/S, labs)? Why? @ -None What meds were considered but not given or refused? Why? @ -None Did you discuss the management of the patient with other professionals (professionals i.e. , PA, [employer], lab, RT, psych nurse, social science professor, dicer machine operator, teacher, disability hearing officer, registered nurse hh case manager)? Give summary @ -No Was smoking cessation discussed for >3mins.? @ -No Was critical care preformed (if so, how long)? @ -No Were there social determinants of health that impacted care today? How? (Homelessness, low income, unemployed, alcoholism, drug addiction, transportation, low edu. Level, literacy, decrease access to med. care, custodial, rehab)? @ -No Was there de-escalation of care discussed even if they declined (Discuss DNR or withdrawal of care, Hospice)? DNR status @ -No What co-morbidities impacted this encounter? (DM, HTN, Smoking, COPD, CAD, Cancer, CVA, ARF, Chemo, Hep., AIDS, mental health diagnosis, sleep apnea, morbid obesity)? @ -None Was patient admitted / discharged? Hospital course, mention meds given and route, prescriptions, significant lab abnormalities, going to OR and other pertinent info. @ -Bleeding stopped spontaneously prior to ER arrival. Patient's vital signs are stable throughout time in ER with no recurrence of bleeding. Patient provided Afrin nasal spray to take home with her in case bleeding should recur. Advised patient to clear nose of blood clots, sprayed twice with Afrin and to affected nostril and pinch for 15-20 minutes. Advised to repeat steps once if necessary and to call 911 if bleeding persists. Advised follow-up with PCP in the next 24-[address]iscuss[address] patient with Dr. Cohen. Undiagnosed new problem with uncertain prognosis? @ -No Drug Therapy requiring intensive monitoring for toxicity (Heparin, Nitro, Insulin, Cardizem)? @ -No Were any procedures done? @ -No Diagnosis/symptom? @ -Anterior epistaxis Acute, or Chronic, or Acute on Chronic? @ -Acute Uncomplicated (without systemic symptoms) or Complicated (systemic symptoms)? @ -Uncomplicated Side effects of treatment? @ -No Exacerbation, Progression, or Severe Exacerbation? @ -No Poses a threat to life or bodily function? How? (Chest pain, [place], [place], pneumonia, PE, COPD, DKA, ARF, appy, cholecystitis, CVA, Diverticulitis, Homicidal, Suicidal, threat to staff... and all critical care pts) @ -No Disposition Clinical Impression: Epistaxis Disposition: HOME SELF-CARE Condition: Good Instructions (If sedation given, give patient instructions): Nosebleed (ED) Additional Instructions: If nosebleed should return, clear nose of blood clots and spray 2 sprays of Afrin nasal spray into affected nostril and pinch nose for 15-20 minutes. Repeat once if necessary. Return to ER if bleeding persists despite this. Is patient prescribed a controlled substance at d/c from ED?: No Referrals: None,Stated [Primary Care Provider] - 1-2 days Radha Davila MD [Medical Doctor] - 1-2 days Time of Disposition: 20:14
[2025-01-04] MEDS: OXYMETAZOLINE 0.05% NASL SPRAY 1 SPRAY BOTTLE NASAL STA (20:29)
[2025-01-04 21:05] VITALS: BP 114/78; PULSE 87; TEMP 98.1
== END 2025-01-04 21:05 | disposition home or self-care (01) ==
LOC: EC 19:31
DX: R04.0 Epistaxis (principal); Z91.040 Latex allergy status; Z91.09 Other allergy status, other than to drugs and biological substances; Z87.891 Personal history of nicotine dependence
CPT/HCPCS: 99283